=== PATIENT | female | born 1955 | race Caucasian/White ===

== ENCOUNTER 2017-12-21 09:24 | Inpatient (IN) ==
[~2017-12-21 09:24] MED LIST: Piperacillin/Tazobactam 3.375 GM in 0.9 % Sodium Chloride Mini Bag 100 ML IVPB SCH
--- NOTE | 2017-12-21 09:38 | Emergency Department Note ---
Disposition Clinical Impression: Severe sepsis, Ovarian cancer, Sinus tachycardia, Pulmonary embolism Disposition: Admitted As Inpatient Condition: Serious General Adult HPI - General Chief complaint: ED Shortness of Breath/Dyspnea Stated complaint: epigastric pain/elevated HR/dyspnea Time Seen by Provider: 12/21/17 09:32 Source: patient Limitations: no limitations - History of Present Illness Pain Scale: 8 - Related Data Home Medications Medication Instructions Recorded Confirmed Dexamethasone [Decadron] 20 mg PO AD 11/08/17 12/21/17 Metoprolol [Lopressor] 1 tab PO BID 11/26/17 12/21/17 Previous Rx's Medication Instructions Recorded Lidocaine/Prilocaine [Emla] 1 appl TP AD #30 gm 10/12/17 Docusate Sodium [Colace] 100 mg PO BID #60 capsule 10/22/17 Magic Mouthwash [Magic Mouthwash 10 ml PO QID PRN #240 ml 10/26/17 BLM] Omeprazole [PriLOSEC] 20 mg PO DAILY #30 cap 10/26/17 Ondansetron HCl [Zofran] 4 mg PO Q4H PRN #30 tablet 10/26/17 Prochlorperazine Maleate 10 mg PO Q6H PRN #30 tablet 10/26/17 [Compazine] Polyethylene Glycol 3350 [MiraLAX] 17 gm PO BID #1 tub 11/05/17 Ascorbate Calcium [Vitamin C] 1 tab PO DAILY #30 tablet 12/03/17 Ferrous Sulfate [Iron] 1 tab PO DAILY #30 tablet 12/03/17 Oxycodone HCl/Acetaminophen 10 mg PO Q6H PRN 15 Days #60 tablet 12/03/17 [Percocet 10-325 mg Tablet] Allergies Allergy/AdvReac Type Severity Reaction Status Date / Time No Known Allergies Allergy Verified 12/21/17 09:26 Past Medical History - Past Medical History Medical history: Reports: cancer, hypertension Psychiatric history: Reports: no psych history C[employer] history: Reports: other - Social History Smoking Status: Never smoker Smokeless Tobacco Status: No Alcohol use: Reports: none Drug use: Reports: none Physical Exam - General Limitations: no limitations General appearance: alert Course Vital Signs Temperature 97.5 F L 12/21/17 09:26 Pulse Rate 178 12/21/17 09:26 Respiratory Rate 30 04/06/18 09:26 Blood Pressure 101/83 12/21/17 09:26 O2 Sat by Pulse Oximetry 94 12/21/17 09:26 Temperature 97.7 F 12/22/17 04:09 Pulse Rate 117 12/22/17 04:09 Respiratory Rate 17 12/22/17 04:09 Blood Pressure 128/85 12/22/17 04:09 O2 Sat by Pulse Oximetry 95 12/22/17 04:09 Oxygen Delivery Oxygen Delivery Nasal Cannula Medical Decision Making - Lab Data Result diagrams: 12/22/17 02:13 12/22/17 02:13 Lab Results 12/21/17 12/21/17 12/21/17 Range/Units 09:45 09:46 09:46 WBC 1.9 L D (4.3-11.1) K/mcL RBC 3.25 L (3.82-4.97) M/mcL Hgb 9.2 L (11.5-15.4) g/dL Hct 28.5 L (35.3-44.9) % MCV 87.7 (83.0-100.0) fL MCH 28.3 (28.0-33.3) pg MCHC 32.3 (31.6-35.5) g/dL RDW 18.9 H (11.5-14.5) % Plt Count 499 H D (140-400) K/mcL MPV 9.9 (9.4-12.4) fL Seg Neutrophils % 54.0 % Band Neutrophils % 6.0 H (0-4) % Lymphocytes % 30.0 % Monocytes % 10.0 % Neutrophils # 1.1 L (1.6-8.9) K/mcL Lymphocytes # 0.6 (0.6-4.6) K/mcL Monocytes # 0.2 (0.0-1.3) K/mcL Nucleated RBCs/100 WBC 1.6 H (0) /100 WBC Platelet Estimate Slight increase H (Normal) Anisocytosis 1+ A (Not Present) PT 14.3 H (9.4-12.1) Seconds INR 1.3 APTT 26.4 (26.0-36.0) Seconds Sodium (136-145) mEq/L Potassium (3.5-5.1) mEq/L Chloride (98-107) mEq/L Carbon Dioxide (23-29) mEq/L BUN (8-23) mg/dL Creatinine (0.60-1.20) mg/dL Est GFR ( Amer) (> 60) Est GFR (Non-Af Amer) (> 60) BUN/Creatinine Ratio (6-26) Glucose (70-105) mg/dL Calculated Osmolality (280-300) Lactic Acid 4.9 H* (0.5-2.2) mmol/L Calcium (8.6-10.3) mg/dL Phosphorus (2.7-4.5) mg/dL Magnesium (1.6-2.6) mg/dL Total Bilirubin (0.3-1.0) mg/dL Direct Bilirubin (0.0-0.2) mg/dL Indirect Bilirubin (0.0-1.2) mg/dL AST (13-39) Units/L ALT (7-52) Units/L Alkaline Phosphatase (34-104) Units/L Troponin I (< 0.04) ng/mL B-Natriuretic Peptide (Less than 100) pg/mL Serum Total Protein (6.4-8.9) g/dL Albumin (3.5-5.7) g/dL Globulin (2.4-3.5) g/dL Albumin/Globulin Ratio (1.1-2.2) Urine Color (Yellow) Urine Clarity (Clear) Urine pH (5.0-8.0) pH Units Ur Specific [place] (1.010-1.025) Urine Protein (Neg-Trace) mg/dL Urine Glucose (UA) (Normal) mg/dL Urine Ketones (Negative) mg/dL Urine Blood (Negative) Urine Nitrite (Negative) Urine Bilirubin (Negative) Urine Urobilinogen (Normal) mg/dL Ur Leukocyte Esterase (Negative) Urine Microscopic RBC (0-3) per hpf Urine Microscopic WBC (0-3) per hpf Ur Squamous Epith Cells (None-Few) per lpf Urine Bacteria (None-Few) per hpf Hyaline Casts (None-Few) per lpf Granular Casts (None Seen) per lpf Urine Mucus (Few) Ur Culture Indicated? (NO) Fluid Source Fluid Volume mL Fluid Appearance (Clear) Fluid RBC (No Ref Range) M/mcL Fld Tot Nucleated Cell (No Ref Range) TNC/mcL Fluid Seg Neutrophil % % Fld Band Neutrophil % Fluid Lymphocytes % % Fluid Monocytes % % Fluid Eosinophils % Fluid Basophils % Fluid Other Cells % % Peritoneal Tot Protein (No Ref Range) g/dL 12/21/17 12/21/17 12/21/17 Range/Units 09:46 09:46 10:20 WBC (4.3-11.1) K/mcL RBC (3.82-4.97) M/mcL Hgb (11.5-15.4) g/dL Hct (35.3-44.9) % MCV (83.0-100.0) fL MCH (28.0-33.3) pg MCHC (31.6-35.5) g/dL RDW (11.5-14.5) % Plt Count (140-400) K/mcL MPV (9.4-12.4) fL Seg Neutrophils % % Band Neutrophils % (0-4) % Lymphocytes % % Monocytes % % Neutrophils # (1.6-8.9) K/mcL Lymphocytes # (0.6-4.6) K/mcL Monocytes # (0.0-1.3) K/mcL Nucleated RBCs/100 WBC (0) /100 WBC Platelet Estimate (Normal) Anisocytosis (Not Present) PT (9.4-12.1) Seconds INR APTT (26.0-36.0) Seconds Sodium 138 (136-145) mEq/L Potassium 4.2 (3.5-5.1) mEq/L Chloride 95 L (98-107) mEq/L Carbon Dioxide 23 (23-29) mEq/L BUN 30 H (8-23) mg/dL Creatinine 0.98 (0.60-1.20) mg/dL Est GFR ( Amer) > 60 (> 60) Est GFR (Non-Af Amer) 57 L (> 60) BUN/Creatinine Ratio 31 H (6-26) Glucose 213 H (70-105) mg/dL Calculated Osmolality 299 (280-300) Lactic Acid (0.5-2.2) mmol/L Calcium 9.7 (8.6-10.3) mg/dL Phosphorus 3.8 (2.7-4.5) mg/dL Magnesium 2.0 (1.6-2.6) mg/dL Total Bilirubin 1.5 H (0.3-1.0) mg/dL Direct Bilirubin 0.7 H (0.0-0.2) mg/dL Indirect Bilirubin 0.8 (0.0-1.2) mg/dL AST 13 (13-39) Units/L ALT 13 (7-52) Units/L Alkaline Phosphatase 89 (34-104) Units/L Troponin I < 0.03 (< 0.04) ng/mL B-Natriuretic Peptide 90 (Less than 100) pg/mL Serum Total Protein 7.2 (6.4-8.9) g/dL Albumin 3.1 L (3.5-5.7) g/dL Globulin 4.1 H (2.4-3.5) g/dL Albumin/Globulin Ratio 0.8 L (1.1-2.2) Urine Color [place] A (Yellow) Urine Clarity Hazy A (Clear) Urine pH 5.5 (5.0-8.0) pH Units Ur Specific [place] 1.027 H (1.010-1.025) Urine Protein 100 H (Neg-Trace) mg/dL Urine Glucose (UA) Normal (Normal) mg/dL Urine Ketones Trace H (Negative) mg/dL Urine Blood Negative (Negative) Urine Nitrite Negative (Negative) Urine Bilirubin Small H (Negative) Urine Urobilinogen Normal (Normal) mg/dL Ur Leukocyte Esterase Small H (Negative) Urine Microscopic RBC 0-3 (0-3) per hpf Urine Microscopic WBC 5-15 H (0-3) per hpf Ur Squamous Epith Cells Many H (None-Few) per lpf Urine Bacteria Moderate H (None-Few) per hpf Hyaline Casts Moderate H (None-Few) per lpf Granular Casts Many H (None Seen) per lpf Urine Mucus Many H (Few) Ur Culture Indicated? NO. (NO) Fluid Source Fluid Volume mL Fluid Appearance (Clear) Fluid RBC (No Ref Range) M/mcL Fld Tot Nucleated Cell (No Ref Range) TNC/mcL Fluid Seg Neutrophil % % Fld Band Neutrophil % Fluid Lymphocytes % % Fluid Monocytes % % Fluid Eosinophils % Fluid Basophils % Fluid Other Cells % % Peritoneal Tot Protein (No Ref Range) g/dL 12/21/17 12/21/17 12/21/17 Range/Units 11:11 11:11 13:45 WBC (4.3-11.1) K/mcL RBC (3.82-4.97) M/mcL Hgb (11.5-15.4) g/dL Hct (35.3-44.9) % MCV (83.0-100.0) fL MCH (28.0-33.3) pg MCHC (31.6-35.5) g/dL RDW (11.5-14.5) % Plt Count (140-400) K/mcL MPV (9.4-12.4) fL Seg Neutrophils % % Band Neutrophils % (0-4) % Lymphocytes % % Monocytes % % Neutrophils # (1.6-8.9) K/mcL Lymphocytes # (0.6-4.6) K/mcL Monocytes # (0.0-1.3) K/mcL Nucleated RBCs/100 WBC (0) /100 WBC Platelet Estimate (Normal) Anisocytosis (Not Present) PT (9.4-12.1) Seconds INR APTT (26.0-36.0) Seconds Sodium (136-145) mEq/L Potassium (3.5-5.1) mEq/L Chloride (98-107) mEq/L Carbon Dioxide (23-29) mEq/L BUN (8-23) mg/dL Creatinine (0.60-1.20) mg/dL Est GFR ( Amer) (> 60) Est GFR (Non-Af Amer) (> 60) BUN/Creatinine Ratio (6-26) Glucose (70-105) mg/dL Calculated Osmolality (280-300) Lactic Acid 1.5 (0.5-2.2) mmol/L Calcium (8.6-10.3) mg/dL Phosphorus (2.7-4.5) mg/dL Magnesium (1.6-2.6) mg/dL Total Bilirubin (0.3-1.0) mg/dL Direct Bilirubin (0.0-0.2) mg/dL Indirect Bilirubin (0.0-1.2) mg/dL AST (13-39) Units/L ALT (7-52) Units/L Alkaline Phosphatase (34-104) Units/L Troponin I (< 0.04) ng/mL B-Natriuretic Peptide (Less than 100) pg/mL Serum Total Protein (6.4-8.9) g/dL Albumin (3.5-5.7) g/dL Globulin (2.4-3.5) g/dL Albumin/Globulin Ratio (1.1-2.2) Urine Color (Yellow) Urine Clarity (Clear) Urine pH (5.0-8.0) pH Units Ur Specific [place] (1.010-1.025) Urine Protein (Neg-Trace) mg/dL Urine Glucose (UA) (Normal) mg/dL Urine Ketones (Negative) mg/dL Urine Blood (Negative) Urine Nitrite (Negative) Urine Bilirubin (Negative) Urine Urobilinogen (Normal) mg/dL Ur Leukocyte Esterase (Negative) Urine Microscopic RBC (0-3) per hpf Urine Microscopic WBC (0-3) per hpf Ur Squamous Epith Cells (None-Few) per lpf Urine Bacteria (None-Few) per hpf Hyaline Casts (None-Few) per lpf Granular Casts (None Seen) per lpf Urine Mucus (Few) Ur Culture Indicated? (NO) Fluid Source Peritoneal Fluid Volume 57 mL Fluid Appearance Slightly Hazy A (Clear) Fluid RBC 0.002 (No Ref Range) M/mcL Fld Tot Nucleated Cell 831 (No Ref Range) TNC/mcL Fluid Seg Neutrophil % 85.0 % Fld Band Neutrophil % Test Not Performed Fluid Lymphocytes % 5.0 % Fluid Monocytes % 4.0 % Fluid Eosinophils % Test Not Performed Fluid Basophils % Test Not Performed Fluid Other Cells % 6.0 % Peritoneal Tot Protein 4.5 (No Ref Range) g/dL Critical Care Time Critical Care Time: Yes Total Critical Care Time: 30 Attestation: The high probability of a clinically significant, sudden or life threatening deterioration of the [] system(s) required my full and direct attention, intervention and personal management. The aggregate critical care time was [] minutes. This time is in addition to time spent performing reported procedures but includes the following: [] Data Review and interpretation [] Patient assessment and monitoring of vital signs [] Documentation [] Medication orders and management Attestation Statement - Attestation Attestation: I examined this patient and my medical decision-making was reviewed with the Resident Physician. I agree with the documented findings, disposition and treatment plan as described except to the extent set forth below. [id number] time provided Patient arrives and is tachycardic and hypotensive. She has a history of ovarian cancer with metastases. She appears pale and generally ill on exam. I evaluated this patient immediately upon arrival to the medical treatment area in conjunction with the resident physician Dr. Irvin 09:45: ECG reveals a narrow complex tachycardia suggestive of supraventricular tachycardia versus sinus tachycardia. P waves are identified. It was mutually agreed to administer and aggressive fluid bolus and reassessed the patient's heart rate before providing any chemical cardioversion 11:12: Abdominal paracentesis performed by the resident physician under my supervision to evaluate peritoneal fluid for possible SBP. She continues to be tachycardic despite fluid resuscitation so I did suggest obtaining a CTA chest 12:50: Dr. Gonsalez in ED to evaluate patient. Recs IV albumin and antibiotics. Patient meets criteria for severe sepsis due to HR, RR, WBC count , lactate
[2017-12-21] MEDS ORDERED: 0.9 % Sodium Chloride 1,000 ML IVC ONE ×3 (09:41→14:44)
[2017-12-21] MEDS ORDERED: *HR* FentaNYL (PF) 100 MCG/2 ML VIAL IVP ONE ×2 (09:42→10:07)
[2017-12-21] MEDS ORDERED: 0.9 % Sodium Chloride 2,000 ML ONE (09:43)
--- NOTE | 2017-12-21 09:49 | Emergency Department Note ---
Disposition Clinical Impression: Severe sepsis, Sinus tachycardia Ovarian cancer Qualifiers: Laterality: unspecified laterality Qualified Code(s): C56.9 - Malignant neoplasm of unspecified ovary Pulmonary embolism Qualifiers: Pulmonary embolism type: other Chronicity: acute Acute cor pulmonale presence: without acute cor pulmonale Qualified Code(s): I26.99 - Other pulmonary embolism without acute cor pulmonale Disposition: Admitted As Inpatient Condition: Serious Referrals: Aide Stephenson [employer]ELOPER [Primary Care Provider] - Forms: ED Satisfaction Letter Time of Disposition: 13:12 General Adult HPI - General Chief complaint: ED Shortness of Breath/Dyspnea Stated complaint: epigastric pain/elevated HR/dyspnea Time Seen by Provider: 12/21/17 09:32 Source: patient Mode of arrival: private vehicle Limitations: no limitations Nursing Notes Reviewed: Yes Vital Signs Reviewed: Yes - History of Present Illness HPI Narrative: 62-year-old female with history of metastatic ovarian cancer with metastasis to the liver arrives to the emergency department being sent over from the cancer center for chemotherapy. The patient was noted to be tachycardic with a heart rate in the 130s to 150s at oncology. They called us and the patient over for evaluation. The patient is felt generalized weakness and generalized illness over the course the past 3 days. She has felt nauseated with some intermittent bilious vomiting. The patient admits to some palpitations and some pleuritic chest pain. She denies any other complaints at this time. She is noted to be tachycardic in the 170s. Initial EKG demonstrates sinus tachycardia versus SVT. There are some possible P waves noted. After initial discussion we elected to perform fluid bolus hydration to determine if that will slow the patient's heart rate. If no success we will cardiovert the patient. Pain Scale: 8 - Related Data Home Medications Medication Instructions Recorded Confirmed Dexamethasone [Decadron] 20 mg PO AD 11/08/17 12/17/17 Metoprolol [Lopressor] 1 tab PO BID 11/26/17 12/17/17 Previous Rx's Medication Instructions Recorded Lidocaine/Prilocaine [Emla] 1 appl TP AD #30 gm 10/12/17 Docusate Sodium [Colace] 100 mg PO BID #60 capsule 10/22/17 Magic Mouthwash [Magic Mouthwash 10 ml PO QID PRN #240 ml 10/26/17 BLM] Omeprazole [PriLOSEC] 20 mg PO DAILY #30 cap 10/26/17 Ondansetron HCl [Zofran] 4 mg PO Q4H PRN #30 tablet 10/26/17 Prochlorperazine Maleate 10 mg PO Q6H PRN #30 tablet 10/26/17 [Compazine] Polyethylene Glycol 3350 [MiraLAX] 17 gm PO BID #1 tub 11/05/17 Ascorbate Calcium [Vitamin C] 1 tab PO DAILY #30 tablet 12/03/17 Ferrous Sulfate [Iron] 1 tab PO DAILY #30 tablet 12/03/17 Oxycodone HCl/Acetaminophen 10 mg PO Q6H PRN 15 Days #60 tablet 12/03/17 [Percocet 10-325 mg Tablet] Blood-Glucose Meter, Drum-Type 1 each MC DAILY #1 kit 12/17/17 [Accu-Chek] Allergies Allergy/AdvReac Type Severity Reaction Status Date / Time No Known Allergies Allergy Verified 12/21/17 09:26 All systems ED: reviewed and negative except as stated. Constitutional: Reports: weakness. Denies: fever, chills ENT ED: Denies: congestion Cardiovascular: Reports: palpitations, dyspnea on exertion. Denies: chest pain , orthopnea, edema Respiratory: Reports: dyspnea. Denies: cough, wheezes, sputum production Gastrointestinal: Reports: abdominal pain, nausea, vomiting. Denies: diarrhea, constipation, hematemesis, melena, hematochezia Genitourinary: Denies: urgency, dysuria Musculoskeletal: Denies: back pain, neck pain Integumentary: Denies: rash Neurological: Denies: headache Past Medical History - Past Medical History Attestation: Yes The following information was validated with the patient. Source: patient, obtained from family Medical history: Reports: cancer, hypertension Psychiatric history: Reports: no psych history [employer]TER history: Reports: other - Social History Smoking Status: Never smoker Smokeless Tobacco Status: No Alcohol use: Reports: none Drug use: Reports: none Physical Exam - General Limitations: no limitations General appearance: alert, in distress - Head Head exam: atraumatic, normocephalic, normal inspection - Eye Eye exam: Present: normal appearance, PERRL, EOMI - ENT ENT exam: normal exam, normal oropharynx, mucous membranes moist - Neck Neck exam: Present: full ROM, trachea midline, other (Mild JVD) - Chest Chest inspection: Present: normal inspection, symmetric chest wall rise - Respiratory Respiratory exam: Present: other (Coarse without rales) - Cardiovascular Cardiovascular exam: Present: normal rhythm, tachycardia, normal heart sounds - Abdominal Exam Abdominal exam: Present: soft, tenderness (Right sded primarily), distention, scar. Absent: guarding, rebound, rigidity, pulsatile mass - Extremities Exam Extremities exam: Present: normal inspection, full ROM. Absent: tenderness, pedal edema - Neurological Exam Neurological exam: Present: alert, oriented X3 - Skin Skin exam: Present: warm, dry, intact, normal color Course - Consultations Consultation #1: Patient was fluid resuscitated with roughly 1500 mL of fluids initially upon arrival. The patient's heart rate and blood pressure have responded. The patient did have a small decrease in her O2 saturation down to 88%. She was placed on 2 L nasal cannula brought her O2 saturation up to 95%. She is resting comfortably at this time. Time: 10:06 Vital Signs Temperature 97.5 F L 12/21/17 09:26 Pulse Rate 178 12/21/17 09:26 Respiratory Rate 30 12/21/17 09:26 Blood Pressure 101/83 12/21/17 09:26 O2 Sat by Pulse Oximetry 94 12/21/17 09:26 Temperature 97.5 F L 12/21/17 09:26 Pulse Rate 152 12/21/17 12:23 Respiratory Rate 38 12/21/17 12:23 Blood Pressure 143/88 12/21/17 12:23 O2 Sat by Pulse Oximetry 100 12/21/17 12:23 Oxygen Delivery Oxygen Delivery Nasal Cannula Medical Decision Making - [facility] Narrative Medical decision making narrative: Patient's workup in the emergency department demonstrates severe sepsis with an unknown source at this time. We started her on IV antibiotics. In addition the patient was noted to have a right segmental pulmonary embolus that was tiny without heart strain. The patient was started on IV heparin drip at this time. She denies any active bleeding, black or bloody stools or any other complaints. The patient's peritoneal fluid was drained diagnostically to determine if there is any signs of SBP. This was negative. Urinalysis negative. Chest x-ray negative for any acute process. The patient was initially administered 2 L of IV fluid upon first arrival which did have improvement of the patient's blood pressure and tachycardia. The patient does remain tachycardic but she states that she is baseline tachycardic with a heart rate in the 130s to 150s when she ambulates. The patient was noted to have an elevated lactic acid of 4.9. This is severe sepsis. The case was discussed with pulmonology with regards to whether or not this patient was a candidate for the ICU. They do not feel as though this was a candidate for the ICU at this time. They gave recommendations of also adding albumin on her resuscitative efforts. We also administered albumin. The patient was accepted to the hospitalist, Dr. Cano for further care and workup. Patient made aware and agrees to plan of care. No further questions or concerns noted at this time. Oncology was also attempted to be paged but has not return phone call prior to time of admission. - Lab Data Lab results reviewed: Yes I reviewed the patient's lab results. Result diagrams: 12/21/17 09:46 12/21/17 09:46 Lab Results 12/21/17 12/21/17 12/21/17 Range/Units 09:45 09:46 09:46 WBC 1.9 L D (4.3-11.1) K/mcL RBC 3.25 L (3.82-4.97) M/mcL Hgb 9.2 L (11.5-15.4) g/dL Hct 28.5 L (35.3-44.9) % MCV 87.7 (83.0-100.0) fL MCH 28.3 (28.0-33.3) pg MCHC 32.3 (31.6-35.5) g/dL RDW 18.9 H (11.5-14.5) % Plt Count 499 H D (140-400) K/mcL MPV 9.9 (9.4-12.4) fL Seg Neutrophils % 54.0 % Band Neutrophils % 6.0 H (0-4) % Lymphocytes % 30.0 % Monocytes % 10.0 % Neutrophils # 1.1 L (1.6-8.9) K/mcL Lymphocytes # 0.6 (0.6-4.6) K/mcL Monocytes # 0.2 (0.0-1.3) K/mcL Nucleated RBCs/100 WBC 1.6 H (0) /100 WBC Platelet Estimate Slight increase H (Normal) Anisocytosis 1+ A (Not Present) PT 14.3 H (9.4-12.1) Seconds INR 1.3 APTT 26.4 (26.0-36.0) Seconds Sodium (136-145) mEq/L Potassium (3.5-5.1) mEq/L Chloride (98-107) mEq/L Carbon Dioxide (23-29) mEq/L BUN (8-23) mg/dL Creatinine (0.60-1.20) mg/dL Est GFR ( Amer) (> 60) Est GFR (Non-Af Amer) (> 60) BUN/Creatinine Ratio (6-26) Glucose (70-105) mg/dL Calculated Osmolality (280-300) Lactic Acid 4.9 H* (0.5-2.2) mmol/L Calcium (8.6-10.3) mg/dL Phosphorus (2.7-4.5) mg/dL Magnesium (1.6-2.6) mg/dL Total Bilirubin (0.3-1.0) mg/dL Direct Bilirubin (0.0-0.2) mg/dL Indirect Bilirubin (0.0-1.2) mg/dL AST (13-39) Units/L ALT (7-52) Units/L Alkaline Phosphatase (34-104) Units/L Troponin I (< 0.04) ng/mL Serum Total Protein (6.4-8.9) g/dL Albumin (3.5-5.7) g/dL Globulin (2.4-3.5) g/dL Albumin/Globulin Ratio (1.1-2.2) Urine Color (Yellow) Urine Clarity (Clear) Urine pH (5.0-8.0) pH Units Ur Specific Thrall (1.010-1.025) Urine Protein (Neg-Trace) mg/dL Urine Glucose (UA) (Normal) mg/dL Urine Ketones (Negative) mg/dL Urine Blood (Negative) Urine Nitrite (Negative) Urine Bilirubin (Negative) Urine Urobilinogen (Normal) mg/dL Ur Leukocyte Esterase (Negative) Urine Microscopic RBC (0-3) per hpf Urine Microscopic WBC (0-3) per hpf Ur Squamous Epith Cells (None-Few) per lpf Urine Bacteria (None-Few) per hpf Hyaline Casts (None-Few) per lpf Granular Casts (None Seen) per lpf Urine Mucus (Few) Ur Culture Indicated? (NO) Fluid Source Fluid Volume mL Fluid Appearance (Clear) Fluid RBC (No Ref Range) M/mcL Fld Tot Nucleated Cell (No Ref Range) TNC/mcL Fluid Seg Neutrophil % % Fld Band Neutrophil % Fluid Lymphocytes % % Fluid Monocytes % % Fluid Eosinophils % Fluid Basophils % Fluid Other Cells % % Peritoneal Tot Protein (No Ref Range) g/dL 12/21/17 12/21/17 12/21/17 Range/Units 09:46 10:20 11:11 WBC (4.3-11.1) K/mcL RBC (3.82-4.97) M/mcL Hgb (11.5-15.4) g/dL Hct (35.3-44.9) % MCV (83.0-100.0) fL MCH (28.0-33.3) pg MCHC (31.6-35.5) g/dL RDW (11.5-14.5) % Plt Count (140-400) K/mcL MPV (9.4-12.4) fL Seg Neutrophils % % Band Neutrophils % (0-4) % Lymphocytes % % Monocytes % % Neutrophils # (1.6-8.9) K/mcL Lymphocytes # (0.6-4.6) K/mcL Monocytes # (0.0-1.3) K/mcL Nucleated RBCs/100 WBC (0) /100 WBC Platelet Estimate (Normal) Anisocytosis (Not Present) PT (9.4-12.1) Seconds INR APTT (26.0-36.0) Seconds Sodium 138 (136-145) mEq/L Potassium 4.2 (3.5-5.1) mEq/L Chloride 95 L (98-107) mEq/L Carbon Dioxide 23 (23-29) mEq/L BUN 30 H (8-23) mg/dL Creatinine 0.98 (0.60-1.20) mg/dL Est GFR ( Amer) > 60 (> 60) Est GFR (Non-Af Amer) 57 L (> 60) BUN/Creatinine Ratio 31 H (6-26) Glucose 213 H (70-105) mg/dL Calculated Osmolality 299 (280-300) Lactic Acid (0.5-2.2) mmol/L Calcium 9.7 (8.6-10.3) mg/dL Phosphorus 3.8 (2.7-4.5) mg/dL Magnesium 2.0 (1.6-2.6) mg/dL Total Bilirubin 1.5 H (0.3-1.0) mg/dL Direct Bilirubin 0.7 H (0.0-0.2) mg/dL Indirect Bilirubin 0.8 (0.0-1.2) mg/dL AST 13 (13-39) Units/L ALT 13 (7-52) Units/L Alkaline Phosphatase 89 (34-104) Units/L Troponin I < 0.03 (< 0.04) ng/mL Serum Total Protein 7.2 (6.4-8.9) g/dL Albumin 3.1 L (3.5-5.7) g/dL Globulin 4.1 H (2.4-3.5) g/dL Albumin/Globulin Ratio 0.8 L (1.1-2.2) Urine Color [place] A (Yellow) Urine Clarity Hazy A (Clear) Urine pH 5.5 (5.0-8.0) pH Units Ur Specific Thrall 1.027 H (1.010-1.025) Urine Protein 100 H (Neg-Trace) mg/dL Urine Glucose (UA) Normal (Normal) mg/dL Urine Ketones Trace H (Negative) mg/dL Urine Blood Negative (Negative) Urine Nitrite Negative (Negative) Urine Bilirubin Small H (Negative) Urine Urobilinogen Normal (Normal) mg/dL Ur Leukocyte Esterase Small H (Negative) Urine Microscopic RBC 0-3 (0-3) per hpf Urine Microscopic WBC 5-15 H (0-3) per hpf Ur Squamous Epith Cells Many H (None-Few) per lpf Urine Bacteria Moderate H (None-Few) per hpf Hyaline Casts Moderate H (None-Few) per lpf Granular Casts Many H (None Seen) per lpf Urine Mucus Many H (Few) Ur Culture Indicated? NO. (NO) Fluid Source Peritoneal Fluid Volume 57 mL Fluid Appearance Slightly Hazy A (Clear) Fluid RBC 0.002 (No Ref Range) M/mcL Fld Tot Nucleated Cell 831 (No Ref Range) TNC/mcL Fluid Seg Neutrophil % 85.0 % Fld Band Neutrophil % Test Not Performed Fluid Lymphocytes % 5.0 % Fluid Monocytes % 4.0 % Fluid Eosinophils % Test Not Performed Fluid Basophils % Test Not Performed Fluid Other Cells % 6.0 % Peritoneal Tot Protein (No Ref Range) g/dL 12/21/17 Range/Units 11:11 WBC (4.3-11.1) K/mcL RBC (3.82-4.97) M/mcL Hgb (11.5-15.4) g/dL Hct (35.3-44.9) % MCV (83.0-100.0) fL MCH (28.0-33.3) pg MCHC (31.6-35.5) g/dL RDW (11.5-14.5) % Plt Count (140-400) K/mcL MPV (9.4-12.4) fL Seg Neutrophils % % Band Neutrophils % (0-4) % Lymphocytes % % Monocytes % % Neutrophils # (1.6-8.9) K/mcL Lymphocytes # (0.6-4.6) K/mcL Monocytes # (0.0-1.3) K/mcL Nucleated RBCs/100 WBC (0) /100 WBC Platelet Estimate (Normal) Anisocytosis (Not Present) PT (9.4-12.1) Seconds INR APTT (26.0-36.0) Seconds Sodium (136-145) mEq/L Potassium (3.5-5.1) mEq/L Chloride (98-107) mEq/L Carbon Dioxide (23-29) mEq/L BUN (8-23) mg/dL Creatinine (0.60-1.20) mg/dL Est GFR ( Amer) (> 60) Est GFR (Non-Af Amer) (> 60) BUN/Creatinine Ratio (6-26) Glucose (70-105) mg/dL Calculated Osmolality (280-300) Lactic Acid (0.5-2.2) mmol/L Calcium (8.6-10.3) mg/dL Phosphorus (2.7-4.5) mg/dL Magnesium (1.6-2.6) mg/dL Total Bilirubin (0.3-1.0) mg/dL Direct Bilirubin (0.0-0.2) mg/dL Indirect Bilirubin (0.0-1.2) mg/dL AST (13-39) Units/L ALT (7-52) Units/L Alkaline Phosphatase (34-104) Units/L Troponin I (< 0.04) ng/mL Serum Total Protein (6.4-8.9) g/dL Albumin (3.5-5.7) g/dL Globulin (2.4-3.5) g/dL Albumin/Globulin Ratio (1.1-2.2) Urine Color (Yellow) Urine Clarity (Clear) Urine pH (5.0-8.0) pH Units Ur Specific Thrall (1.010-1.025) Urine Protein (Neg-Trace) mg/dL Urine Glucose (UA) (Normal) mg/dL Urine Ketones (Negative) mg/dL Urine Blood (Negative) Urine Nitrite (Negative) Urine Bilirubin (Negative) Urine Urobilinogen (Normal) mg/dL Ur Leukocyte Esterase (Negative) Urine Microscopic RBC (0-3) per hpf Urine Microscopic WBC (0-3) per hpf Ur Squamous Epith Cells (None-Few) per lpf Urine Bacteria (None-Few) per hpf Hyaline Casts (None-Few) per lpf Granular Casts (None Seen) per lpf Urine Mucus (Few) Ur Culture Indicated? (NO) Fluid Source Fluid Volume mL Fluid Appearance (Clear) Fluid RBC (No Ref Range) M/mcL Fld Tot Nucleated Cell (No Ref Range) TNC/mcL Fluid Seg Neutrophil % % Fld Band Neutrophil % Fluid Lymphocytes % % Fluid Monocytes % % Fluid Eosinophils % Fluid Basophils % Fluid Other Cells % % Peritoneal Tot Protein 4.5 (No Ref Range) g/dL - Radiology Data Radiology results reviewed: Yes I reviewed the patient's radiology results. Chest X-Ray 12/21/17 09:46 IMPRESSION: Low lung volumes with bibasilar atelectasis D/ / Yoel Em MD / Yoel Em MD Interpreting Provider: Yoel Em MD Chest CTA 12/21/17 11:12 IMPRESSION: Positive study for pulmonary embolism with tiny embolus within distal aspect of a segmental pulmonary artery to the right lower lobe. Low clot burden. No evidence for right heart strain. Interval resolution of trace right pleural effusion. Trace left pleural effusion appears similar to minimally improved from prior exam 11/08/2017. Linear areas of likely scarring versus atelectasis to the lungs bilaterally, predominantly to the lung bases. Grossly stable appearance to some low-attenuation foci to the partially imaged liver likely reflecting a combination of benign liver cysts as well as liver lesions. There is also persistent ascites, not appreciably changed from prior exam. Critical results were called by Dr. Antione Pritchett MD to Cecilio Irvin on 12/21/2017 at 12:19. D/ / 12/21/2017 12:23:43 Antione Pritchett MD / [facility] Interpreting Provider: Antione Pritchett MD - EKG Data EKG #1 EKG attestation: Yes I reviewed and interpreted this EKG. EKG results narrative: Heart rate 165 beats for minute. Sinus tachycardia versus SVT. There are some noted P waves but difficult to assess as this may be a rebound wave. EKG otherwise similar to what morphology to EKG from 11/26/2017. EKG at 1005: Heart rate 1 [address]pm[address]. No [address] elevation or ST depression noted.
[2017-12-21 10:09] LABS: Nucleated Red Blood Cells 1.6 /100 WBC (0); Red Cell Distribution Width 18.9 % (11.5-14.5)
[2017-12-21 10:10] LABS: Hematocrit 28.5 % (35.3-44.9); Hemoglobin 9.2 g/dL (11.5-15.4); Lymphocytes # 0.6 K/mcL (0.6-4.6); Mean Corpuscular HGB Conc 32.3 g/dL (31.6-35.5); Mean Corpuscular Hemoglobin 28.3 pg (28.0-33.3); Mean Corpuscular Volume 87.7 fL (83.0-100.0); Mean Platelet Volume 9.9 fL (9.4-12.4); Platelet Count 499 K/mcL (140-400); Red Blood Count 3.25 M/mcL (3.82-4.97)
[2017-12-21 10:14] LABS: INR 1.3; Prothrombin Time 14.3 Seconds (9.4-12.1)
[2017-12-21 10:17] LABS: Activated Partial Thrombo Time 26.4 Seconds (26.0-36.0)
[2017-12-21 10:26] LABS: Monocytes # 0.2 K/mcL (0.0-1.3); Neutrophils # 1.1 K/mcL (1.6-8.9)
[2017-12-21 10:27] LABS: Bilirubin,Urine Small (Negative); Blood,Urine Negative (Negative); Color,Urine Orange (Yellow); Glucose,Urine (UA) Normal (Normal); Ketones,Urine Trace mg/dL (Negative); Leukocyte Esterase,Urine Small (Negative); Nitrite,Urine Negative (Negative); PH,Urine 5.5 pH Units (5.0-8.0); Protein,Urine 100 mg/dL (Neg-Trace); Specific Gravity,Urine 1.027 (1.010-1.025); Urobilinogen,Urine Normal (Normal)
[2017-12-21 10:27] LABS: Anisocytosis 1+ (Not Present)
[2017-12-21 10:28] LABS: Alanine Aminotransferase 13 Units/L (7-52); Albumin 3.1 g/dL (3.5-5.7); Albumin/Globulin Ratio 0.8 (1.1-2.2); Alkaline Phosphatase 89 Units/L (34-104); Aspartate Amino Transferase 13 Units/L (13-39); BUN/Creatinine Ratio 31 (6-26); Bilirubin,Direct 0.7 mg/dL (0.0-0.2); Bilirubin,Indirect 0.8 mg/dL (0.0-1.2); Bilirubin,Total 1.5 mg/dL (0.3-1.0); Blood Urea Nitrogen 30 mg/dL (8-23); Calcium 9.7 mg/dL (8.6-10.3); Carbon Dioxide 23 mEq/L (23-29); Chloride 95 mEq/L (98-107); Globulin 4.1 g/dL (2.4-3.5); Glucose 213 mg/dL (70-105); Osmolality,Calculated 299 (280-300); Phosphorous 3.8 mg/dL (2.7-4.5); Potassium 4.2 mEq/L (3.5-5.1); Sodium 138 mEq/L (136-145); Total Protein 7.2 g/dL (6.4-8.9); Troponin I < 0.03 ng/mL (< 0.04); eGFR For African Americans > 60 (> 60); eGFR For Non-African Americans 57 (> 60)
[2017-12-21 10:29] LABS: RBC,Urine 0-3 per hpf (0-3); Squamous Epithelial Cell,Urine Many per lpf (None-Few)
[2017-12-21] MEDS ORDERED: Ondansetron 4 MG/2 ML VIAL IVP ONE (10:38)
[2017-12-21] MEDS ORDERED: Ondansetron 4 MG/2 ML VIAL ONE (10:39)
[2017-12-21 10:43] LABS: Mucus,Urine Many (Few)
[2017-12-21 10:44] LABS: Granular Casts,Urine Many per lpf (None Seen); Hyaline Casts,Urine Moderate per lpf (None-Few)
[2017-12-21 10:46] LABS: Bacteria,Urine Moderate per hpf (None-Few)
[2017-12-21 10:48] LABS: Clarity,Urine Hazy (Clear)
[2017-12-21 11:20] LABS: Source of Body Fluid Peritoneal
[2017-12-21 11:33] LABS: Volume of Body Fluid 57 mL
[2017-12-21 11:35] LABS: Appearance of Body Fluid Slightly Hazy (Clear)
[2017-12-21] MEDS ORDERED: Hydrocortisone Sodium Succ 100 MG/2 ML VIAL IVP ONE (12:56)
[2017-12-21] MEDS ORDERED: *HR* Heparin 5,000 UNIT/ML VIAL IVP ONE (13:04)
[2017-12-21] MEDS ORDERED: *HR* Heparin 5,000 UNIT/ML VIAL IVP PRN (13:04)
[2017-12-21] MEDS: Piperacillin/Tazobactam 3.375 GM in 0.9 % Sodium Chloride Mini Bag 100 ML IVPB ONE ×2 (13:09→16:04)
[2017-12-21] MEDS: Heparin 25,000 UNIT/500 ML D5W 25,000 UNIT/500 ML BAG IVC SCH (14:04)
[2017-12-21] MEDS ORDERED: *HR* OxyCODONE/APAP 10/325 TABLET PO PRN (14:48)
[2017-12-21] MEDS ORDERED: Magic Mouthwash 10 ML UD Cup PO PRN (14:48)
[2017-12-21] MEDS ORDERED: *HR* Metoprolol 5 MG/5 ML VIAL IVP ONE (14:56)
[2017-12-21] MEDS ORDERED: Naloxone 0.4 MG/ML INJ IVP PRN (14:57)
--- NOTE | 2017-12-21 15:11 | Internal Med History&Physical ---
<Lionel Saha J - Last Filed: 12/21/17 15:02> Date of Encounter: 12/21/17 Time of Encounter: 15:03 Internal Medicine - H&P: HPI Chief complaint: tachycardia, Severe sepsis, Pulmonary embolism, Hx of ovarian Ca with liver Admitted From: Home Plans for Post Hospital Care: Home History of present illness: Ms. Gamble is a 62 year old female with a PMH of HTN and ovarian cancer with metastasis to the liver. She presents to [facility] ED today from [facility] with tachycardia. She was at [facility] for chemotherapy and was noted to be tachycardic with HR in the 130's-150's. She reports that she has had tachycardia with HR around 130's at home for approximately the last month. Over the last three days she has been noticing increasing generalized weakness, and dyspnea. She also reports feeling many palpitations throughout the last three days. She denies any fevers, chills, ill contacts, chest pain, abdominal pain, diarrhea, dysuria or unilateral extermity swelling or pain. She admits to intermittent N/V and dyspnea. She was found to have a temperature of 97.5, and HR of 170's as well as hypotension with a lactate of 4.9 in the ED. She was treated for severe sepsis with shock and received 2L fluid bolus and HR and BP slightly improved. No clear source of infection. She remained dyspneic however, and A CTA was obtained and she was found to have a PE with a tiny embolus within the distal aspect of a segmental pulmonary artery to the right lobe. No evidence of heart strain noted. She is being admitted as inpatient for PE and severe sepsis with shock. Past Med Surg Social Fam HX - Past Medical History Medical history: cancer, hypertension Psychiatric history: no psych history - Social History Smoking Status: Never smoker Smokeless Tobacco Status: No Alcohol use: none Drug use: none - Family History Sister Living Status: Still Living Hx Family Cancer: Yes (ovarian) Internal Medicine - H&P: Meds Lidocaine/Prilocaine [Emla] 1 appl TP AD #30 gm 10/12/17 [Rx] Docusate Sodium [Colace] 100 mg PO BID #60 capsule 10/22/17 [Rx] Magic Mouthwash [Magic Mouthwash BLM] 10 ml PO QID PRN #240 ml 10/26/17 [Rx] Omeprazole [PriLOSEC] 20 mg PO DAILY #30 cap 10/26/17 [Rx] Ondansetron HCl [Zofran] 4 mg PO Q4H PRN #30 tablet 10/26/17 [Rx] Prochlorperazine Maleate [Compazine] 10 mg PO Q6H PRN #30 tablet 10/26/17 [Rx] Polyethylene Glycol 3350 [MiraLAX] 17 gm PO BID #1 tub 11/05/17 [Rx] Dexamethasone [Decadron] 20 mg PO AD 11/08/17 [History] Metoprolol [Lopressor] 1 tab PO BID 11/26/17 [History] Ascorbate Calcium [Vitamin C] 1 tab PO DAILY #30 tablet 12/03/17 [Rx] Ferrous Sulfate [Iron] 1 tab PO DAILY #30 tablet 12/03/17 [Rx] Oxycodone HCl/Acetaminophen [Percocet 10-325 mg Tablet] 10 mg PO Q6H PRN 15 Days #60 tablet 12/03/17 [Rx] 3 Allergy/AdvReac Type Severity Reaction Status Date / Time No Known Allergies Allergy Verified 12/21/17 09:26 All Systems PM: A 10-system review of systems was performed and is negative for pertinent findings except as documented above in the HPI. - Constitutional Constitutional: as per HPI - EENT Eyes: no change in vision, no discharge, no pain, no photophobia Ears: no ear discharge, no ear pain, no tinnitus Nose, mouth and throat: no dysphagia, no nasal discharge, no neck pain, no sore throat - Cardiovascular Cardiovascular ROS IM: as per HPI - Respiratory Respiratory: as per HPI - Gastrointestinal Gastrointestinal: as per HPI - Genitourinary Genitourinary: as per HPI - Musculoskeletal Musculoskeletal ROS IM: no numbness, no tingling - Integumentary Integumentary IM: no rash, no unusual bruising - Neurological Neurological ROS: no confusion, no convulsions, no focal weakness, no numbness, no tingling, no tremor(s) - Constitutional Vitals: Temp Pulse Resp BP Pulse Ox 96.8 F L 146 30 116/93 100 12/21/17 13:47 12/21/17 14:41 12/21/17 14:41 12/21/17 14:41 12/21/17 14:41 General appearance: Present: cooperative, mild distress, A&O X 3, answers questions appropriately - Head Head exam: Present: atraumatic, normocephalic - Eye Eye exam: Present: PERRL, conjuntiva pink, sclera anicteric Pupils: Present: PERRL - Neck Neck exam general surgery: Present: supple, trachea midline. Absent: lymphadenopathy - Respiratory Respiratory exam: Present: decreased breath sounds, CTAB, tachypnea Additional comments: shallow respirations without accessory breathing - Cardiovascular Cardiovascular exam: Present: RRR, +S1, +S2, tachycardia. Absent: diastolic murmur, gallop, irregular rhythm, JVD, rubs, systolic murmur - GI/Abdominal GI/Abdominal exam: Present: normal bowel sounds, soft, no peritoneal signs. Absent: distended, tenderness - Extremities Exam Extremities exam: Present: warm, radial pulses palpable and symmetrical. Absent : calf tenderness, cyanotic, pedal edema - Neurological Exam Neurological exam: Present: alert, oriented X3. Absent: facial droop, speech deficit - Skin Skin exam: Present: dry, intact Internal Med - H&P Results - Labs CBC & Chem 7: 12/21/17 09:46 12/21/17 09:46 - EKG Data -: EKG Interpreted by Myself EKG shows normal: sinus rhythm Rate: tachycardia - EKG Data Prior EKG available for review: no EKG comments: EKG X 2 WITH SINUS TACHYCARDIA vs SVT WITH HR OF 142 AND 165. P-waves are visualized, no ischemic changes noted 12/21/17 15:14 - Impressions Impressions Chest X-Ray 12/21/17 09:46 IMPRESSION: Low lung volumes with bibasilar atelectasis D/ / Yoel Em MD / Yoel Em MD Interpreting Provider: Yoel Em MD Chest CTA 12/21/17 11:12 IMPRESSION: Positive study for pulmonary embolism with tiny embolus within distal aspect of a segmental pulmonary artery to the right lower lobe. Low clot burden. No evidence for right heart strain. Interval resolution of trace right pleural effusion. Trace left pleural effusion appears similar to minimally improved from prior exam 11/08/2017. Linear areas of likely scarring versus atelectasis to the lungs bilaterally, predominantly to the lung bases. Grossly stable appearance to some low-attenuation foci to the partially imaged liver likely reflecting a combination of benign liver cysts as well as liver lesions. There is also persistent ascites, not appreciably changed from prior exam. Critical results were called by Dr. Antione Pritchett MD to Cecilio Irvin on 12/21/2017 at 12:19. D/ / 12/21/2017 12:23:43 Antione Pritchett MD / annika Interpreting Provider: Antione Pritchett MD - Assessment and plan (1) Pulmonary embolism Current Visit: Yes Status: Acute Assessment and plan: Presents today with tachycardia, tachypnea, and dyspnea. H/o cancer. CTA chest results as follows Positive study for pulmonary embolism with tiny embolus within distal aspect of a segmental pulmonary artery to the right lower lobe. Low clot burden. No evidence for right heart strain. -Continue heparin gtt and adjust and order labs per protocol -Respiratory per nasal canula PRN; Maintain spo2 greater than 90% Qualifiers: Pulmonary embolism type: other Chronicity: acute Acute cor pulmonale presence: without acute cor pulmonale Qualified Code(s): I26.99 - Other pulmonary embolism without acute cor pulmonale (2) Severe sepsis Current Visit: Yes Status: Acute Assessment and plan: ASSESSMENT: Presents today with Severe Sepsis without shock. Etiology unclear. CXR negative or acute pulmonary process, no open wounds, does not appear to have an acute abdomen per my exam. Ua negative for UTI, Blood cultures pending. She is immunocompromised with ovarian cancer with metastasis to the liver. WBC 1.9, Lactic acid 4.9 tachycardia, tachypnea, mild hypotension. Received 2L fluid bolus in ED and HR slightly improved. BP has improved. Follow-up lactate 1.5. Hemodynamically stable. -Aerosols q4h -UA small leukocyte esterase, not convincing for UTI -CBCD, BMP in AM -trend cardiac enzymes q6has she is also sinus tach with rate in 140's and has a PE -Tylenol 650 mg PO q 6 hr PRN pain or fever -Heparin gtt as she has a PE as well -ABX Vancomycin with PT to dose and Zosyn Q8h -Blood cultures- follow results -Bolus 0.9% NS x1 additional liter -Continuous tele, Continuous Spo2 monitoring (3) HTN (hypertension) Current Visit: Yes Status: Acute Assessment and plan: Stable, continue home anti-HTN medication Qualifiers: Hypertension type: essential hypertension Qualified Code(s): I10 - Essential (primary) hypertension (4) Ovarian cancer Current Visit: Yes Status: Chronic Assessment and plan: H/o ovarian cancer with metastases to the liver. Follow with [facility]. Receiving weekly chemotherapy. Was at [facility] today and found to be tachycardic and send to ED. -Consult Oncology to follow throughout stay. Qualifiers: Laterality: unspecified laterality Qualified Code(s): C56.9 - Malignant neoplasm of unspecified ovary (5) Hyperglycemia Current Visit: Yes Status: Acute Assessment and plan: Likely secondary to oral steroid use with chemotherapy tx continue to monitor no insulin coverage for now; no h/o DM (6) DVT prophylaxis Current Visit: Yes Status: Acute Assessment and plan: Continue heparin gtt (7) Neutropenia Current Visit: Yes Status: Acute Assessment and plan: WBC 1.9 and neutrophils 1.1. H/o ovarian cancer with liver metastasis -consult to Oncology- Spoke with Oncology who will see in consultation -Additional recommendations for Oncology Qualifiers: Neutropenia type: unspecified Qualified Code(s): D70.9 - Neutropenia, unspecified - Time Spent With Patient Total time spent is greater than 50% in coordination of care (as documented) at patient's floor/unit and/or counseling patient: Greater than 35 minutes <Max Cano T - Last Filed: 12/22/17 08:10> Date of Encounter: 12/22/17 Internal Medicine - H&P: HPI History of present illness: Ms. Gamble is a 62 year old female All Systems PM: A 10-system review of systems was performed and is negative for pertinent findings except as documented above in the HPI. - Constitutional Vitals: Temp Pulse Resp BP Pulse Ox 97.8 F 124 16 137/95 95 12/22/17 07:33 12/22/17 07:33 12/22/17 07:33 12/22/17 07:33 12/22/17 07:33 Internal Med - H&P Results - Labs CBC & Chem 7: 12/22/17 02:13 12/22/17 02:13 Labs: Short CBC 12/22/17 Range/Units 02:13 WBC 1.6 L (4.3-11.1) K/mcL Hgb 7.1 L D (11.5-15.4) g/dL Hct 22.2 L (35.3-44.9) % Plt Count 317 (140-400) K/mcL Neutrophils # 0.7 L (1.6-8.9) K/mcL BMP 12/22/17 02:13 Sodium 137 Potassium 3.8 Chloride 106 Carbon Dioxide 24 BUN 27 H Creatinine 0.70 Glucose 144 H Calcium 8.5 L Cardiac Enzymes 12/21/17 12/21/17 Range/Units 17:01 19:56 Troponin I < 0.03 < 0.03 (< 0.04) ng/mL - Attending Attestation The patient was independently examined and her available records, labs and tests were reviewed. I agree with the BO[employer] OUT[employer]ING SUPERVISOR's A&P. Her ST was initially treated with Lopressor; however, she remains tachycardic with a rate in the 120-130s so a Cardizem was started. She has a small PE in the distal aspect of a segmental branch within the RLL. There is no CT evidence to suggest right heart strain. She was started on a Heparin drip and could be be transitioned to Xarelto or Eliquis in the morning. She denies any bleeding or prior GIB. Initially she met sepsis criteria and had a LA of 4.9 which following fluid resuscitation decreased to 1.5. Her CXR did not show an infiltrate. Her UA looks contaminated and should be repeated. She's neurtopenic but her neutrophils are > 1000 and she is afebrile. Vanc and Zosyn were started empirically and a low threshold to deescalate coverage should be considered if no source of infection is discovered. Her Hbg has been in the mid 9 range and should be closely followed after anticoagulation is started. Oncology was mad aware of her admission. A paracentesis was done in the ER and initial results do not suggest peritonitis. Her abdomen was soft without peritoneal signs. - Assessment and plan (1) Ovarian cancer Current Visit: Yes Status: Chronic Qualifiers: Laterality: unspecified laterality Qualified Code(s): C56.9 - Malignant neoplasm of unspecified ovary (2) DVT prophylaxis Current Visit: Yes Status: Acute (3) Severe sepsis Current Visit: Yes Status: Acute (4) Pulmonary embolism Current Visit: Yes Status: Acute Qualifiers: Pulmonary embolism type: other Chronicity: acute Acute cor pulmonale presence: without acute cor pulmonale Qualified Code(s): I26.99 - Other pulmonary embolism without acute cor pulmonale (5) HTN (hypertension) Current Visit: Yes Status: Acute Qualifiers: Hypertension type: essential hypertension Qualified Code(s): I10 - Essential (primary) hypertension (6) Hyperglycemia Current Visit: Yes Status: Acute (7) Neutropenia Current Visit: Yes Status: Acute Qualifiers: Neutropenia type: unspecified Qualified Code(s): D70.9 - Neutropenia, unspecified - Time Spent With Patient Total time spent is greater than 50% in coordination of care (as documented) at patient's floor/unit and/or counseling patient:
[2017-12-21] MEDS ORDERED: Levalbuterol Neb 0.63 MG/3 ML IH PRN (15:40)
[2017-12-21] MEDS ORDERED: Acetaminophen 325 MG TABLET PO PRN (15:41)
[2017-12-21] MEDS: *HR* FentaNYL (PF) 100 MCG/2 ML VIAL IVP PRN (17:04)
[2017-12-21] MEDS: *HR* OxyCODONE/APAP 10/325 TABLET PO PRN (21:09)
[2017-12-22] MEDS: *HR* FentaNYL (PF) 100 MCG/2 ML VIAL IVP PRN ×2 (00:39→18:44)
[2017-12-22] MEDS: Piperacillin/Tazobactam 3.375 GM in 0.9 % Sodium Chloride Mini Bag 100 ML IVPB SCH ×3 (00:44→15:16)
[2017-12-22 02:24] LABS: Mean Platelet Volume 9.6 fL (9.4-12.4)
[2017-12-22 02:26] LABS: Basophils % 1.2 %; Hematocrit 22.2 % (35.3-44.9); Hemoglobin 7.1 g/dL (11.5-15.4); Immature Granulocytes % 1.2 % (0-4); Lymphocytes # 0.6 K/mcL (0.6-4.6); Mean Corpuscular Hemoglobin 28.1 pg (28.0-33.3); Mean Corpuscular Volume 87.7 fL (83.0-100.0); Monocytes # 0.3 K/mcL (0.0-1.3); Monocytes % 20.1 %; Neutrophils # 0.7 K/mcL (1.6-8.9); Platelet Count 317 K/mcL (140-400); Red Blood Count 2.53 M/mcL (3.82-4.97); Red Cell Distribution Width 19.3 % (11.5-14.5); Segmented Neutrophils % 41.5 %
[2017-12-22 02:52] LABS: BUN/Creatinine Ratio 39 (6-26); Blood Urea Nitrogen 27 mg/dL (8-23); Calcium 8.5 mg/dL (8.6-10.3); Carbon Dioxide 24 mEq/L (23-29); Chloride 106 mEq/L (98-107); Glucose 144 mg/dL (70-105); Osmolality,Calculated 292 (280-300); Potassium 3.8 mEq/L (3.5-5.1); Sodium 137 mEq/L (136-145); eGFR For African Americans > 60 (> 60); eGFR For Non-African Americans > 60 (> 60)
[2017-12-22] MEDS: *HR* OxyCODONE/APAP 10/325 TABLET PO PRN ×4 (03:08→20:22)
[2017-12-22] MEDS: *HR* Heparin 5,000 UNIT/ML VIAL IVP PRN ×2 (03:09→12:39)
[2017-12-22 03:15] LABS: Platelet Estimate Normal (Normal); Reactive Lymphocytes Present (Not Present)
[2017-12-22 03:16] LABS: Anisocytosis 1+ (Not Present)
[2017-12-22] MEDS: Ascorbic Acid 500 MG TABLET PO SCH (09:06)
[2017-12-22 10:41] LABS: Bilirubin,Urine Small (Negative); Blood,Urine Negative (Negative); Clarity,Urine Cloudy (Clear); Color,Urine Dark Yellow (Yellow); Glucose,Urine (UA) Normal (Normal); Ketones,Urine Negative (Negative); Leukocyte Esterase,Urine Negative (Negative); Nitrite,Urine Negative (Negative); PH,Urine 5.5 pH Units (5.0-8.0); Protein,Urine 100 mg/dL (Neg-Trace); Specific Gravity,Urine > 1.030 (1.010-1.025); Urobilinogen,Urine Normal (Normal)
--- NOTE | 2017-12-22 10:41 | Internal Med Progress Note ---
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 Stage IV currently undergoing treatment with [facility] (Dr. Graves) Oncology evaluation requested. Qualifiers: Laterality: unspecified laterality Qualified Code(s): C56.9 - Malignant neoplasm of unspecified ovary (2) DVT prophylaxis Current Visit: Yes Status: Acute Assessment and plan: Continue heparin gtt (3) Severe sepsis Current Visit: Yes Status: Acute Assessment and plan: Likely secondary to UTI CT findings consistent with PE however not signs of infectious etiology present will repeat UA, urine culture f/u blood culture continue broad spectrum IV abx given immunocompromised status will de-escalate abx therapy as clinically improves and as per culture reports continue O2 supplementation as needed will continue to closely monitor (4) Pulmonary embolism Current Visit: Yes Status: Acute Assessment and plan: CTA chest findings consisted with RLL distal segmental PE continue heparin gtt oncology evaluation requested will defer to oncology for adjunct faculty for medical terminology anticoagulation O2 supplementation as needed Qualifiers: Pulmonary embolism type: other Chronicity: acute Acute cor pulmonale presence: without acute cor pulmonale Qualified Code(s): I26.99 - Other pulmonary embolism without acute cor pulmonale (5) HTN (hypertension) Current Visit: Yes Status: Acute Assessment and plan: BP within acceptable range continue home meds Qualifiers: Hypertension type: essential hypertension Qualified Code(s): I10 - Essential (primary) hypertension (6) Hyperglycemia Current Visit: Yes Status: Acute Assessment and plan: Likely secondary to oral steroid use with chemotherapy tx continue to monitor no insulin coverage for now; no h/o DM (7) Neutropenia Current Visit: Yes Status: Acute Assessment and plan: WBC 1.6 and neutrophils 0.7. H/o ovarian cancer with liver metastasis f/u oncology evaluation Qualifiers: Neutropenia type: unspecified Qualified Code(s): D70.9 - Neutropenia, unspecified (8) Constipation Current Visit: Yes Status: Chronic Assessment and plan: History of chronic constipation KUB done to r/o any acute etiology, negative for any intra-abd process d/c colace, started Senna plus 2Tabs PO BID continue miralax Qualifiers: Constipation type: drug induced constipation Qualified Code(s): K59.03 - Drug induced constipation (9) Sinus tachycardia Current Visit: Yes Status: Acute Assessment and plan: Hx of sinus tachycardia, worsened likely secondary to acute PE continue home dose of BB continue heparin gtt for PE will continue tele monitoring pt denies any chest pain at this time - Time Spent With Patient Total time spent is greater than 50% in coordination of care (as documented) at patient's floor/unit and/or counseling patient: - Subjective Interval history: Patient seen and examined with family present at bedside. Pt reports of having history of sinus tachycardia and her HR is always in 110-120s however prior to her arrival to the hospital it was in 140s and she was nauseous, feeling ill. Pt reports of having her last chemotherapy treatment one week ago with Dr. Graves. Given pt's immunocompromised status, concern for sepsis likely secondary to UTI Will continue IV abx at this time Denies any chest pain, shortness of breath at this time. however is saturating well on nasal cannula and she is not on any home oxygen of note: pt reports of having a diagnostic paracentesis in the ER, done by the ER physician - Constitutional Vitals: Temp Pulse Resp BP Pulse Ox 97.8 F 123 16 137/95 94 12/22/17 07:33 12/22/17 10:28 12/22/17 10:28 12/22/17 07:33 12/22/17 10:28 General appearance: Present: cooperative, A&O X 3 (frail/weak), no acute distress, answers questions appropriately - Head Head exam: Present: atraumatic, normocephalic - Eye Eye exam: Present: conjuntiva pink, sclera anicteric - Respiratory Respiratory exam: Absent: respiratory distress, wheezes (equal air entry bilaterally ) - Cardiovascular Cardiovascular exam: Present: +S1, +S2, tachycardia (sinus tachycardia) - GI/Abdominal GI/Abdominal exam: Present: distended (ascites), hypoactive bowel sounds, soft, no peritoneal signs - Extremities Exam Extremities exam: Present: warm, radial pulses palpable and symmetrical. Absent : calf tenderness, tenderness - Neurological Exam Neurological exam: Present: oriented X3 Internal Medicine: Result - Labs CBC & Chem 7: 12/22/17 02:13 12/22/17 02:13 Labs: Short CBC 12/22/17 Range/Units 02:13 WBC 1.6 L (4.3-11.1) K/mcL Hgb 7.1 L D (11.5-15.4) g/dL Hct 22.2 L (35.3-44.9) % Plt Count 317 (140-400) K/mcL Neutrophils # 0.7 L (1.6-8.9) K/mcL BMP 12/22/17 02:13 Sodium 137 Potassium 3.8 Chloride 106 Carbon Dioxide 24 BUN 27 H Creatinine 0.70 Glucose 144 H Calcium 8.5 L Cardiac Enzymes 12/21/17 12/21/17 Range/Units 17:01 19:56 Troponin I < 0.03 < 0.03 (< 0.04) ng/mL - ABG Interpretation ABG results: PT/INR, D-dimer PT 14.3 Seconds (9.4-12.1) H 12/21/17 09:46 Consult Discharge Plan - Plan Referrals: Aide Stephenson, DAM WORKER [Primary Care Provider] -
[2017-12-22 10:43] LABS: Hematocrit 22.7 % (35.3-44.9); Hemoglobin 7.5 g/dL (11.5-15.4)
[2017-12-22 10:44] LABS: Bacteria,Urine None Seen per hpf (None-Few); Squamous Epithelial Cell,Urine Many per lpf (None-Few); WBC,Urine 15-30 per hpf (0-3)
--- NOTE | 2017-12-22 12:13 | Electrocardiograph Report ---
[address] [place], [place] [address] Test Date: 2017-12-21 Pat Name: Jenna Gamble Department: 102 Room: 2N10 Gender: F Rv Repairer: : 1955 Requested By: Samson Sarkar Order Number: [id number] Reading MD: Zeny Shell Measurements Intervals [place] Rate: 142 P: 37 UT: 143 QRS: 16 QRSD: 85 T: 32 QT: 344 QTc: 426 Interpretive Statements SINUS TACHYCARDIA NONSPECIFIC ST & T-WAVE ABNORMALITY ABNORMAL RHYTHM ECG Electronically Signed On 12-22-2017 12:11:14 EDT by Zeny Shell
[2017-12-22] MEDS: Heparin 25,000 UNIT/500 ML D5W 25,000 UNIT/500 ML BAG IVC SCH (12:39)
[2017-12-22] MEDS: Ondansetron 4 MG/2 ML VIAL IVP PRN (14:11)
[2017-12-22] MEDS: Sennosides/Docusate Sodium TABLET PO SCH (20:23)
[2017-12-23] MEDS: *HR* FentaNYL (PF) 100 MCG/2 ML VIAL IVP PRN ×3 (00:12→19:57)
[2017-12-23] MEDS: Piperacillin/Tazobactam 3.375 GM in 0.9 % Sodium Chloride Mini Bag 100 ML IVPB SCH ×4 (00:12→23:43)
[2017-12-23 01:28] LABS: Hematocrit 22.8 % (35.3-44.9); Hemoglobin 7.4 g/dL (11.5-15.4); Mean Corpuscular HGB Conc 32.5 g/dL (31.6-35.5); Mean Corpuscular Hemoglobin 28.1 pg (28.0-33.3); Mean Corpuscular Volume 86.7 fL (83.0-100.0); Mean Platelet Volume 9.8 fL (9.4-12.4); Nucleated Red Blood Cells 2.2 /100 WBC (0); Platelet Count 322 K/mcL (140-400); Red Blood Count 2.63 M/mcL (3.82-4.97); Red Cell Distribution Width 19.8 % (11.5-14.5)
[2017-12-23 01:44] LABS: BUN/Creatinine Ratio 37 (6-26); Blood Urea Nitrogen 28 mg/dL (8-23); Calcium 8.9 mg/dL (8.6-10.3); Carbon Dioxide 25 mEq/L (23-29); Chloride 100 mEq/L (98-107); Glucose 155 mg/dL (70-105); Magnesium 1.9 mg/dL (1.6-2.6); Osmolality,Calculated 285 (280-300); Phosphorous 3.2 mg/dL (2.7-4.5); Potassium 3.7 mEq/L (3.5-5.1); Sodium 133 mEq/L (136-145); eGFR For African Americans > 60 (> 60); eGFR For Non-African Americans > 60 (> 60)
[2017-12-23 01:57] LABS: Lymphocytes # 2.4 K/mcL (0.6-4.6); Monocytes # 0.5 K/mcL (0.0-1.3); Neutrophils # 0.8 K/mcL (1.6-8.9)
[2017-12-23 01:58] LABS: Anisocytosis 1+ (Not Present); Microcytosis Present (Not Present); Platelet Estimate Normal (Normal)
[2017-12-23] MEDS: *HR* OxyCODONE/APAP 10/325 TABLET PO PRN ×4 (03:06→23:55)
[2017-12-23] MEDS: Sennosides/Docusate Sodium TABLET PO SCH ×2 (07:36→19:58)
[2017-12-23] MEDS: Ascorbic Acid 500 MG TABLET PO SCH (07:37)
[2017-12-23] MEDS: Heparin 25,000 UNIT/500 ML D5W 25,000 UNIT/500 ML BAG IVC SCH ×2 (07:44→23:56)
--- NOTE | 2017-12-23 08:38 | Electrocardiograph Report ---
[facility] Test Date: 2017-12-21 Pat Name: Jenna Gamble Department: 102 Room: 2N10 Gender: F Library Assistant: Amrit : 1955 Requested By: Cecilio Irvin Order Number: [id number] Reading MD: Cecilio Cosme Measurements Intervals [place] Rate: 165 P: VT: 0 QRS: 10 QRSD: 82 T: 61 QT: 255 QTc: 346 Interpretive Statements SUPRAVENTRICULAR TACHYCARDIA NONSPECIFIC T-WAVE ABNORMALITY ABNORMAL RHYTHM ECG Electronically Signed On 12-23-2017 8:36:54 EDT by Cecilio Cosme
[2017-12-23] MEDS ORDERED: Bisacodyl 10 MG RECTAL SUPPOSITORY RC ONE (10:02)
[2017-12-23] MEDS: *HR* Heparin 5,000 UNIT/ML VIAL IVP PRN (10:25)
--- NOTE | 2017-12-23 11:54 | Oncology Inp Consult Note ---
Date of Encounter: 12/23/17 Time of Encounter: 10:00 Assessment and Plan (1) Pulmonary embolism Status: Acute Assessment and plan: Incidentally found right lung pulmonary moles and. The small clot burden. I think she can be transitioned to heparin drip to Xarelto 20 mg once daily at discharge. I would hold on initiating Xarelto until after you have completed a therapeutic paracentesis given her abdominal findings today. Once her paracentesis is complete, Xarelto can be initiated and hopefully she can be discharged soon. Qualifiers: Pulmonary embolism type: other Chronicity: acute Acute cor pulmonale presence: without acute cor pulmonale Qualified Code(s): I26.99 - Other pulmonary embolism without acute cor pulmonale (2) Neutropenia Status: Acute Assessment and plan: She has neutropenia complicated by spontaneous bacterial peritonitis as well as an open Escherichia coli UTI. I agree with Valentine. She can likely be transitioned to Augmentin or Levaquin at time of discharge as this should over both organisms. It appears her counts are recovering. There is no indication for G-CSF as she is clinically stable. Qualifiers: Neutropenia type: unspecified Qualified Code(s): D70.9 - Neutropenia, unspecified (3) Constipation Status: Chronic Assessment and plan: As she is neutropenic, please hold on enema use. We should avoid rectal manipulation during neutropenia. Instead, utilize magnesium citrate. I placed an order for this. Qualifiers: Constipation type: drug induced constipation Qualified Code(s): K59.03 - Drug induced constipation (4) Ovarian cancer Status: Chronic Assessment and plan: She is clinically responding. Further management per her primary oncologist. I would consider adding Neulasta to her regimen to avoid neutropenia. Qualifiers: Laterality: unspecified laterality Qualified Code(s): C56.9 - Malignant neoplasm of unspecified ovary - Data of Consult Patient: known to practice within the last 3 years Requesting Physician: Samson Sarkar Primary Care Provider: Arcenio Andrade - Consult Narrative Reason for consult: New PE History of present illness: Ms. Gamble is a 62 year old female with stage IV ovarian cancer who is under the care of my partner, Dr. Graves, and recently completed cycle #2 of carboplatin and paclitaxel dose reduction who presented to the hospital with tachycardia with a heart rate in the 130s to 150s. Patient was generally weak and fatigued and she had palpitations over the past 3 days. She had a infectious symptoms of fever or chills. His believe she was septic and a subsequent been found to have an Escherichia coli UTI as well as spontaneous bacterial peritonitis with streptococcus. She had approximately 700 neutrophils and a positive culture for streptococcus. Albumin was not assessed. She is currently on Zosyn. During her evaluation, CT scan of the chest revealed an incidental pulmonary embolism in the distal aspect subsegmental pulmonary artery and the right lower lobe. There has been evidence of improvement of her cancer with resolution of a right pleural effusion as well as decrease and trace left pleural effusion. Her CA 125 has also decreased to 156. In speaking with the patient today, she has dyspnea on exertion which is stable and chronic. No increased shortness of breath. She does feel as though her abdomen is more distended than what has been in the past. Her appetite is down. She has not moved her bowels since Sunday. She is currently on MiraLAX twice daily, Senokot 2 tablets twice daily as well as docusate. She is neutropenic but her counts appear to be recovering. Past Med Surg Social Fam HX - Past Medical History Medical history: cancer, hypertension Psychiatric history: no psych history - Social History Smoking Status: Never smoker Smokeless Tobacco Status: No Alcohol use: none Drug use: none - Family History Sister Living Status: Still Living Hx Family Cancer: Yes (ovarian) Medications and Allergies Lidocaine/Prilocaine [Emla] 1 appl TP AD #30 gm 10/12/17 [Rx] Docusate Sodium [Colace] 100 mg PO BID #60 capsule 10/22/17 [Rx] Magic Mouthwash [Magic Mouthwash BLM] 10 ml PO QID PRN #240 ml 10/26/17 [Rx] Omeprazole [PriLOSEC] 20 mg PO DAILY #30 cap 10/26/17 [Rx] Ondansetron HCl [Zofran] 4 mg PO Q4H PRN #30 tablet 10/26/17 [Rx] Prochlorperazine Maleate [Compazine] 10 mg PO Q6H PRN #30 tablet 10/26/17 [Rx] Polyethylene Glycol 3350 [MiraLAX] 17 gm PO BID #1 tub 11/05/17 [Rx] Dexamethasone [Decadron] 20 mg PO AD 11/08/17 [History] Metoprolol [Lopressor] 1 tab PO BID 11/26/17 [History] Ascorbate Calcium [Vitamin C] 1 tab PO DAILY #30 tablet 12/03/17 [Rx] Ferrous Sulfate [Iron] 1 tab PO DAILY #30 tablet 12/03/17 [Rx] Oxycodone HCl/Acetaminophen [Percocet 10-325 mg Tablet] 10 mg PO Q6H PRN 15 Days #60 tablet 12/03/17 [Rx] 3 Allergy/AdvReac Type Severity Reaction Status Date / Time No Known Allergies Allergy Verified 12/21/17 09:26 All systems: reviewed and no additional remarkable complaints except as stated Constitutional: Present: anorexia, fatigue, lethargy Cardiovascular: Present: dyspnea on exertion, lightheadedness, palpitations, rapid heart rate Respiratory: Present: as per HPI Gastrointestinal: Present: as per HPI Musculoskeletal: Present: muscle weakness Neurological: Present: as per HPI Oncology - Exam - Constitutional Vitals: Temp Pulse Resp BP Pulse Ox 97.9 F 128 18 129/91 94 12/23/17 11:19 12/23/17 10:33 12/23/17 11:19 12/23/17 11:19 12/23/17 11:19 General appearance: average body habitus, mild distress - Head Head exam: Present: atraumatic, normal inspection, normocephalic - Eye Eye exam: Present: normal appearance, conjuntiva pink, sclera anicteric - ENT ENT exam: Present: mucous membranes moist, normal oropharynx - Neck Neck exam: Present: full ROM, normal inspection - Respiratory Respiratory exam: Present: CTAB - Cardiovascular Cardiovascular exam: Present: tachycardia - GI/Abdominal GI/Abdominal exam: Present: distended, firm, normal bowel sounds - Extremities Exam Extremities exam: Present: normal inspection - Neurological Exam Neurological exam: Present: alert, oriented X3, no focal deficits Oncology - Results Labs: Short CBC 12/23/17 Range/Units 00:46 WBC 4.2 L D (4.3-11.1) K/mcL Hgb 7.4 L (11.5-15.4) g/dL Hct 22.8 L (35.3-44.9) % Plt Count 322 (140-400) K/mcL Neutrophils # 0.8 L (1.6-8.9) K/mcL BMP 12/23/17 00:46 Sodium 133 L Potassium 3.7 Chloride 100 Carbon Dioxide 25 BUN 28 H Creatinine 0.75 Glucose 155 H Calcium 8.9 SUPINE VIEW(S) OF THE ABDOMEN 12/22/2017 10:35 am FINDINGS: The bowel gas pattern is within normal limits. No evidence of free intraperitoneal air or obstruction. No pathologic calcifications are identified. XR/XR KUB IMPRESSION: No acute intra-abdominal process. CTA OF THE CHEST 12/21/2017 12:04 pm FINDINGS: Pulmonary Arteries: Pulmonary arteries are adequately opacified for evaluation. Small filling defect within distal aspect of a segmental pulmonary artery to the right lower lobe compatible with pulmonary embolism (reference image 67 axial sequences). No findings for right heart strain. Main pulmonary artery is normal in caliber. Mediastinum: Heart is normal in size. No pericardial effusion. No acute findings are seen to the thoracic aorta. No evidence for thoracic aortic aneurysm. Mild atherosclerotic changes to the thoracic aorta. No mediastinal or hilar lymphadenopathy noted. Lungs/pleura: Interval resolution of trace right pleural effusion. Trace left pleural effusion appears similar to minimally improved from prior exam. There are some linear areas of likely scarring versus atelectasis to the lungs bilaterally, predominantly to the lung bases. No dense consolidations. No pneumothoraces. Evidence for prior granulomatous disease redemonstrated. No discrete pulmonary nodules or masses are seen. Upper Abdomen: Limited images through the upper abdomen redemonstrate ascites, not significantly changed. There is redemonstration of multiple low-attenuation foci to the liver felt to reflect a combination of neoplastic foci and liver cysts. These do not appear significantly changed. No adrenal mass lesions are seen. Soft Tissues/Bones: No acute or suspicious bony or soft tissue abnormalities. CT/CT angio chest IMPRESSION: Positive study for pulmonary embolism with tiny embolus within distal aspect of a segmental pulmonary artery to the right lower lobe. Low clot burden. No evidence for right heart strain. Interval resolution of trace right pleural effusion. Trace left pleural effusion appears similar to minimally improved from prior exam 11/08/2017. Linear areas of likely scarring versus atelectasis to the lungs bilaterally, predominantly to the lung bases. Grossly stable appearance to some low-attenuation foci to the partially imaged liver likely reflecting a combination of benign liver cysts as well as liver lesions. There is also persistent ascites, not appreciably changed from prior exam. Consult Discharge Plan - Plan Referrals: Aide Stephenson, DELMY [Primary Care Provider] -
--- NOTE | 2017-12-23 15:44 | Internal Med Progress Note ---
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 Stage IV currently undergoing treatment with [facility] (Dr. Graves) Oncology evaluation appreciated Qualifiers: Laterality: unspecified laterality Qualified Code(s): C56.9 - Malignant neoplasm of unspecified ovary (2) DVT prophylaxis Current Visit: Yes Status: Acute Assessment and plan: Continue heparin gtt (3) Severe sepsis Current Visit: Yes Status: Acute Assessment and plan: Likely secondary to UTI and SBP CT findings consistent with PE however not signs of infectious etiology present will repeat UA, urine culture blood culture prelim NGTD continue broad spectrum IV abx given immunocompromised status will de-escalate abx therapy as clinically improves and as per culture reports continue O2 supplementation as needed will continue to closely monitor (4) Pulmonary embolism Current Visit: Yes Status: Acute Assessment and plan: CTA chest findings consisted with RLL distal segmental PE continue heparin gtt oncology evaluatio appreciated will hold Heparin gtt six hours prior to paracentesis and start Xarelto after paracentesis O2 supplementation as needed Qualifiers: Pulmonary embolism type: other Chronicity: acute Acute cor pulmonale presence: without acute cor pulmonale Qualified Code(s): I26.99 - Other pulmonary embolism without acute cor pulmonale (5) HTN (hypertension) Current Visit: Yes Status: Acute Assessment and plan: BP within acceptable range continue home meds Qualifiers: Hypertension type: essential hypertension Qualified Code(s): I10 - Essential (primary) hypertension (6) Hyperglycemia Current Visit: Yes Status: Acute Assessment and plan: Likely secondary to oral steroid use with chemotherapy tx continue to monitor no insulin coverage for now; no h/o DM (7) Neutropenia Current Visit: Yes Status: Acute Assessment and plan: continue treatment with empiric IV abx oncology on board and evaluation appreciated will continue to closely monitor Qualifiers: Neutropenia type: unspecified Qualified Code(s): D70.9 - Neutropenia, unspecified (8) Constipation Current Visit: Yes Status: Chronic Assessment and plan: History of chronic constipation KUB done to r/o any acute etiology, negative for any intra-abd process Mg citrate added by oncology continue senna plus, miralax Qualifiers: Constipation type: drug induced constipation Qualified Code(s): K59.03 - Drug induced constipation (9) Sinus tachycardia Current Visit: Yes Status: Acute Assessment and plan: Hx of sinus tachycardia, worsened likely secondary to acute PE increased Metoprolol to 50mg PO BID continue heparin gtt for PE will continue tele monitoring pt denies any chest pain at this time - Time Spent With Patient Total time spent is greater than 50% in coordination of care (as documented) at patient's floor/unit and/or counseling patient: - Subjective Interval history: Patient seen and examined with family present at bedside. Pt reports of persistent nausea and abd discomfort due to constipation. Pt needs therapeutic paracentesis Oncology evaluation appreciated Will consult IR for paracentesis. Hold heparin six hours prior to paracentesis and will start Xarelto after the paracentesis - Constitutional Vitals: Temp Pulse Resp BP Pulse Ox 97.9 F 129 20 129/91 93 12/23/17 11:19 12/23/17 14:15 12/23/17 14:15 12/23/17 11:19 12/23/17 14:15 General appearance: Present: cooperative, A&O X 3 (frail/weak), no acute distress, answers questions appropriately - Head Head exam: Present: atraumatic, normocephalic - Eye Eye exam: Present: conjuntiva pink, sclera anicteric - Respiratory Respiratory exam: Absent: rales, respiratory distress, wheezes - Cardiovascular Cardiovascular exam: Present: RRR, +S1, +S2. Absent: diastolic murmur, gallop, rubs, systolic murmur - GI/Abdominal GI/Abdominal exam: Present: distended (ascites), normal bowel sounds, soft, no peritoneal signs - Extremities Exam Extremities exam: Present: warm, radial pulses palpable and symmetrical. Absent : calf tenderness - Neurological Exam Neurological exam: Present: oriented X3 Internal Medicine: Result - Labs CBC & Chem 7: 12/23/17 00:46 12/23/17 00:46 Labs: Short CBC 12/23/17 Range/Units 00:46 WBC 4.2 L D (4.3-11.1) K/mcL Hgb 7.4 L (11.5-15.4) g/dL Hct 22.8 L (35.3-44.9) % Plt Count 322 (140-400) K/mcL Neutrophils # 0.8 L (1.6-8.9) K/mcL BMP 12/23/17 00:46 Sodium 133 L Potassium 3.7 Chloride 100 Carbon Dioxide 25 BUN 28 H Creatinine 0.75 Glucose 155 H Calcium 8.9 - ABG Interpretation ABG results: PT/INR, D-dimer PT 14.3 Seconds (9.4-12.1) H 12/21/17 09:46 - VTE Documentation of Mechanical Device: Intermittent pneumatic compression device Consult Discharge Plan - Plan Referrals: Aide Stephenson, FORENSIC INVESTIGATOR [Primary Care Provider] -
[2017-12-23] MEDS: Ondansetron 4 MG/2 ML VIAL IVP PRN ×2 (15:47→23:41)
[2017-12-24 00:23] LABS: Mean Corpuscular HGB Conc 33.3 g/dL (31.6-35.5); Mean Corpuscular Hemoglobin 29.2 pg (28.0-33.3); Mean Corpuscular Volume 87.6 fL (83.0-100.0); Nucleated Red Blood Cells 2.4 /100 WBC (0); Platelet Count 358 K/mcL (140-400); Red Blood Count 2.74 M/mcL (3.82-4.97); Red Cell Distribution Width 20.2 % (11.5-14.5)
[2017-12-24 00:39] LABS: BUN/Creatinine Ratio 38 (6-26); Blood Urea Nitrogen 35 mg/dL (8-23); Carbon Dioxide 25 mEq/L (23-29); Chloride 98 mEq/L (98-107); Glucose 136 mg/dL (70-105); Osmolality,Calculated 286 (280-300); Phosphorous 3.5 mg/dL (2.7-4.5); Potassium 3.7 mEq/L (3.5-5.1); Sodium 133 mEq/L (136-145); eGFR For African Americans > 60 (> 60); eGFR For Non-African Americans > 60 (> 60)
[2017-12-24 04:15] LABS: Lymphocytes # 1.2 K/mcL (0.6-4.6); Monocytes # 0.5 K/mcL (0.0-1.3); Neutrophils # 10.1 K/mcL (1.6-8.9); Platelet Estimate Normal (Normal)
[2017-12-24] MEDS: *HR* OxyCODONE/APAP 10/325 TABLET PO PRN ×2 (06:05→21:02)
[2017-12-24] MEDS: *HR* FentaNYL (PF) 100 MCG/2 ML VIAL IVP PRN (08:13)
[2017-12-24] MEDS: Piperacillin/Tazobactam 3.375 GM in 0.9 % Sodium Chloride Mini Bag 100 ML IVPB SCH ×2 (08:13→16:08)
[2017-12-24] MEDS: Sennosides/Docusate Sodium TABLET PO SCH ×2 (08:14→21:02)
[2017-12-24] MEDS: Ascorbic Acid 500 MG TABLET PO SCH (08:14)
[2017-12-24] MEDS ORDERED: Aminoglycoside Consult 1 EACH MC ONE (08:36)
--- NOTE | 2017-12-24 12:06 | IR Procedure Note ---
Date of procedure: 12/24/17 Consent Obtained: Verbal consent Timeout: Correct patient and procedure verified, Correct site verified, Time out performed, Skin prep completed Indications: ascites Procedure Performed: paracentesis Was there an molding line assistant present: No Site/Technique: left abdomen Results/Findings: large ascites Estimated blood loss (cc): 0 Complications: None; Tolerated procedure well Post Procedure Treatment Plan: recovery Specimen: fluid
[2017-12-24] MEDS: Ondansetron 4 MG/2 ML VIAL IVP PRN ×2 (16:13→21:02)
[2017-12-24] MEDS ORDERED: *HR* HYDROmorphone (PF) 1 MG/ML SYRINGE IVP ONE (16:15)
--- NOTE | 2017-12-24 16:21 | Internal Med Progress Note ---
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 Stage IV currently undergoing treatment with [facility] (Dr. Graves) Oncology evaluation appreciated Qualifiers: Laterality: unspecified laterality Qualified Code(s): C56.9 - Malignant neoplasm of unspecified ovary (2) DVT prophylaxis Current Visit: Yes Status: Acute Assessment and plan: on heparin gtt will be started on Xarelto this evening with discontinuation of heparin gtt (3) Severe sepsis Current Visit: Yes Status: Acute Assessment and plan: Likely secondary to UTI and SBP CT findings consistent with PE however not signs of infectious etiology present f/u urine culture blood culture prelim NGTD periotoneal fluid cultures prelim positive for gram negative rods and strep will d/c IV vanco and continue zosyn continue O2 supplementation as needed will continue to closely monitor (4) Pulmonary embolism Current Visit: Yes Status: Acute Assessment and plan: CTA chest findings consisted with RLL distal segmental PE oncology evaluatio appreciated pt to be started on Xarelto this evening and will discontinue heparin gtt O2 supplementation as needed Qualifiers: Pulmonary embolism type: other Chronicity: acute Acute cor pulmonale presence: without acute cor pulmonale Qualified Code(s): I26.99 - Other pulmonary embolism without acute cor pulmonale (5) HTN (hypertension) Current Visit: Yes Status: Acute Assessment and plan: BP within acceptable range continue home meds Qualifiers: Hypertension type: essential hypertension Qualified Code(s): I10 - Essential (primary) hypertension (6) Hyperglycemia Current Visit: Yes Status: Acute Assessment and plan: Likely secondary to oral steroid use with chemotherapy tx continue to monitor (7) Neutropenia Current Visit: Yes Status: Resolved Assessment and plan: continue treatment with IV abx oncology on board and evaluation appreciated will continue to closely monitor Qualifiers: Neutropenia type: unspecified Qualified Code(s): D70.9 - Neutropenia, unspecified (8) Constipation Current Visit: Yes Status: Chronic Assessment and plan: History of chronic constipation KUB done to r/o any acute etiology, negative for any intra-abd process will provide with enema support Qualifiers: Constipation type: drug induced constipation Qualified Code(s): K59.03 - Drug induced constipation (9) Sinus tachycardia Current Visit: Yes Status: Acute Assessment and plan: Hx of sinus tachycardia, worsened likely secondary to acute PE Metoprolol 50mg PO BID will continue tele monitoring pt denies any chest pain at this time - Time Spent With Patient Total time spent is greater than 50% in coordination of care (as documented) at patient's floor/unit and/or counseling patient: - Subjective Interval history: Patient seen and examined with family present at bedside. Pt sitting in bed and appears to be feeling better compared to previous day. s/p therapeutic paracentesis with removal of 4L of ascites fluid done by IR (12/24) pt still not able to have a bowel movement despite the mg citrate and laxative support neutropenia resolved, will give patient enema D/c heparin gtt and start pt on Xarelto PT/OT evaluation requested. - Constitutional Vitals: Temp Pulse Resp BP Pulse Ox 98.2 F 139 18 93/65 93 12/24/17 16:08 12/24/17 16:08 12/24/17 16:08 12/24/17 16:08 12/24/17 16:08 General appearance: Present: cooperative, A&O X 3 (frail/weak), no acute distress, answers questions appropriately - Head Head exam: Present: atraumatic, normocephalic - Eye Eye exam: Present: conjuntiva pink, sclera anicteric - Respiratory Respiratory exam: Present: CTAB. Absent: respiratory distress, wheezes - Cardiovascular Cardiovascular exam: Present: +S1, +S2, tachycardia (sinus tachycardia ) - GI/Abdominal GI/Abdominal exam: Present: distended (ascites), normal bowel sounds, soft, no peritoneal signs - Extremities Exam Extremities exam: Present: warm, radial pulses palpable and symmetrical. Absent : calf tenderness, tenderness - Neurological Exam Neurological exam: Present: oriented X3 Internal Medicine: Result - Labs CBC & Chem 7: 12/24/17 00:06 12/24/17 00:06 Labs: Short CBC 12/24/17 Range/Units 00:06 WBC 12.3 H D (4.3-11.1) K/mcL Hgb 8.0 L (11.5-15.4) g/dL Hct 24.0 L (35.3-44.9) % Plt Count 358 (140-400) K/mcL Neutrophils # 10.1 H (1.6-8.9) K/mcL BMP 12/24/17 00:06 Sodium 133 L Potassium 3.7 Chloride 98 Carbon Dioxide 25 BUN 35 H Creatinine 0.92 Glucose 136 H Calcium 9.0 - ABG Interpretation ABG results: PT/INR, D-dimer PT 14.3 Seconds (9.4-12.1) H 12/21/17 09:46 - Impressions Impressions Paracentesis Ultrasound 12/24/17 08:04 IMPRESSION: Successful ultrasound guided paracentesis. D/ / Beba Fernandes MD / Beba Fernandes MD Interpreting Provider: Beba Fernandes MD - VTE Documentation of Mechanical Device: Intermittent pneumatic compression device Consult Discharge Plan - Plan Referrals: Aide Stephenson [employer] LEVEL PROJECT MANAGER [Primary Care Provider] - 01/02/18 10:45 am
[2017-12-24] MEDS: *HR* Rivaroxaban 15 MG TABLET PO SCH (17:28)
[2017-12-24] MEDS ORDERED: *HR* OxyCODONE Immed Rel 5 MG TABLET PO PRN (19:55)
[2017-12-24] MEDS: *HR* HYDROmorphone (PF) 1 MG/ML SYRINGE IVP PRN (21:27)
[2017-12-25] MEDS: Piperacillin/Tazobactam 3.375 GM in 0.9 % Sodium Chloride Mini Bag 100 ML IVPB SCH ×3 (01:36→17:27)
[2017-12-25] MEDS: *HR* HYDROmorphone (PF) 1 MG/ML SYRINGE IVP PRN ×3 (01:36→09:51)
[2017-12-25 05:00] LABS: Hematocrit 23.3 % (35.3-44.9); Hemoglobin 7.7 g/dL (11.5-15.4); Mean Corpuscular Hemoglobin 28.8 pg (28.0-33.3); Mean Corpuscular Volume 87.3 fL (83.0-100.0); Mean Platelet Volume 10.3 fL (9.4-12.4); Nucleated Red Blood Cells 1.7 /100 WBC (0); Platelet Count 291 K/mcL (140-400); Red Blood Count 2.67 M/mcL (3.82-4.97); Red Cell Distribution Width 20.9 % (11.5-14.5)
[2017-12-25 05:15] LABS: BUN/Creatinine Ratio 42 (6-26); Blood Urea Nitrogen 34 mg/dL (8-23); Calcium 8.5 mg/dL (8.6-10.3); Carbon Dioxide 24 mEq/L (23-29); Chloride 101 mEq/L (98-107); Glucose 134 mg/dL (70-105); Magnesium 1.7 mg/dL (1.6-2.6); Osmolality,Calculated 288 (280-300); Phosphorous 2.6 mg/dL (2.7-4.5); Potassium 3.4 mEq/L (3.5-5.1); Sodium 134 mEq/L (136-145); eGFR For African Americans > 60 (> 60); eGFR For Non-African Americans > 60 (> 60)
[2017-12-25] MEDS: *HR* Rivaroxaban 15 MG TABLET PO SCH ×2 (05:16→17:27)
[2017-12-25 05:50] LABS: Lymphocytes # 3.1 K/mcL (0.6-4.6); Monocytes # 2.8 K/mcL (0.0-1.3); Neutrophils # 10.1 K/mcL (1.6-8.9)
[2017-12-25 05:51] LABS: Anisocytosis 1+ (Not Present); Basophilic Stippling 1+ (Not Present); Platelet Estimate Normal (Normal); Polychromasia 1+ (Not Present)
[2017-12-25] MEDS: Ascorbic Acid 500 MG TABLET PO SCH (08:18)
[2017-12-25] MEDS ORDERED: Potassium Phosphate 44 MEQ in 0.9 % Sodium Chloride 250 ML IVPB ONE (08:42)
[2017-12-25] MEDS: Sennosides/Docusate Sodium TABLET PO SCH (09:57)
[2017-12-25] MEDS: *HR* OxyCODONE/APAP 10/325 TABLET PO PRN ×2 (12:24→18:39)
--- NOTE | 2017-12-25 15:03 | Oncology Inp Progress Note ---
<Valentin Castorena S - Last Filed: 12/25/17 18:09> Date of Encounter: 12/25/17 (1) Pulmonary embolism Status: Acute Qualifiers: Pulmonary embolism type: other Chronicity: acute Acute cor pulmonale presence: without acute cor pulmonale Qualified Code(s): I26.99 - Other pulmonary embolism without acute cor pulmonale (2) Neutropenia Status: Resolved Qualifiers: Neutropenia type: unspecified Qualified Code(s): D70.9 - Neutropenia, unspecified (3) Constipation Status: Chronic Qualifiers: Constipation type: drug induced constipation Qualified Code(s): K59.03 - Drug induced constipation (4) Ovarian cancer Status: Chronic Qualifiers: Laterality: unspecified laterality Qualified Code(s): C56.9 - Malignant neoplasm of unspecified ovary - Constitutional Vitals: Vital Signs Temp Pulse Resp BP Pulse Ox 12/25/17 15:00 98.0 F 121 15 116/71 100 12/25/17 13:52 98.1 F 117 16 119/76 100 12/25/17 10:57 97.4 F L 120 22 118/74 98 12/25/17 10:35 97.8 F 118 16 116/78 94 12/25/17 10:20 118 16 116/78 94 12/25/17 07:26 98.3 F 123 23 131/84 97 12/25/17 04:15 98.2 F 121 16 112/71 94 12/25/17 01:07 97.5 F L 104 16 104/72 95 12/24/17 20:03 98.1 F 124 18 117/74 95 Intake and Output 12/25/17 12/25/17 12/26/17 08:59 16:59 00:59 Intake Total 969 / 969 Output Total 400 / 400 200 / 200 Balance -400 / -400 769 / 769 Intake: IV Fluids 489 / 489 Zosyn 3.375 GM In 0.9 % Sodium 100 / 100 Chloride (Mini-Bag +) 100 ML @ 25 mls/hr IVPB Q8HR [facility] Rx#: [id number] Potassium Phosphate 44 MEQ In 0 139 / 139 .9 % Sodium Chloride 250 ML @ 40 mls/hr IVPB ONCE ONE Rx#: [id number] Vancocin 1,000 MG In 0.9 % 250 / 250 Sodium Chloride 250 ML @ 167 mls/hr IVPB Q12H [facility] Rx#: [id number] Free Water 480 / 480 Output: Urine 400 / 400 Urine/Stool Mix 200 / 200 Other: Meal Breakfast Percent of Meal Consumed 25% Stool Size Large Stool Consistency liquid Stool Color Black Weight 73.4 kg Blood Glucose* 211 Patient Weight 12/26/17 00:59 Weight 73.4 kg Oncology: Obj Data - Labs CBC & Chem 7: 12/25/17 04:30 12/25/17 04:30 Labs: Laboratory Results - last 24 hr 12/24/17 12/24/17 12/25/17 16:07 19:58 04:30 WBC 17.4 H RBC 2.67 L Hgb 7.7 L Hct 23.3 L MCV 87.3 MCH 28.8 MCHC 33.0 RDW 20.9 H Plt Count 291 MPV 10.3 Seg Neutrophils % 58.0 Lymphocytes % 18.0 Monocytes % 16.0 Metamyelocytes % 6.0 H Myelocytes % 2.0 H Neutrophils # 10.1 H Lymphocytes # 3.1 Monocytes # 2.8 H Nucleated RBCs/100 WBC 1.7 H Platelet Estimate Normal Polychromasia 1+ A Basophilic Stippling 1+ A Anisocytosis 1+ A Sodium Potassium Chloride Carbon Dioxide BUN Creatinine Est GFR ( Amer) Est GFR (Non-Af Amer) BUN/Creatinine Ratio Glucose POC Glucose 124 H 149 H Calculated Osmolality Calcium Phosphorus Magnesium 12/25/17 04:30 WBC RBC Hgb Hct MCV MCH MCHC RDW Plt Count MPV Seg Neutrophils % Lymphocytes % Monocytes % Metamyelocytes % Myelocytes % Neutrophils # Lymphocytes # Monocytes # Nucleated RBCs/100 WBC Platelet Estimate Polychromasia Basophilic Stippling Anisocytosis Sodium 134 L Potassium 3.4 L Chloride 101 Carbon Dioxide 24 BUN 34 H Creatinine 0.81 Est GFR ( Amer) > 60 Est GFR (Non-Af Amer) > 60 BUN/Creatinine Ratio 42 H Glucose 134 H POC Glucose Calculated Osmolality 288 Calcium 8.5 L Phosphorus 2.6 L Magnesium 1.7 - ABG Interpretation ABG results: PT/INR, D-dimer PT 14.3 Seconds (9.4-12.1) H 12/21/17 09:46 Consult Discharge Plan - Plan Referrals: Aide Stephenson CNP [Primary Care Provider] - 01/02/18 10:45 am - Attending Attestation I examined this patient and my medical decision-making was reviewed with the Advanced Practice Nurse. I agree with the documented findings, disposition and treatment plan as described except to the extent set forth below. I met with Ms. Gamble as well as her family again today. They are requesting transfer to the [facility] I asked to clarify what her medical needs would be for transfer. They are content with her oncologic care, and the care they are receiving under Dr. Graves. She is clinically improving from her spontaneous bacterial peritonitis from Streptococcus as well as her Escherichia coli UTI. In addition , she is having a robust radiographic, biochemical and clinical response to ovarian cancer. Her therapeutic paracentesis was well tolerated with improvement in pain. Her imaging and labs were again reviewed with them today. The family states that "want to do something different" but will not elaborate further. I offered the opportunity to meet with patient relations to see there something we could help from a nursing or care perspective but they declined. I did inform them that they should not expect to receive further therapy for her cancer as she is actively infected. Surgery will not be pursued during this hospital stay as she is debilitated and has active infection. It would be best for her to meet with the gynecologic oncology team once she has recovered from her acute event as an outpatient. They voiced understanding but still wants to pursue transfer I offered my assistance moving forward I asked him to call us with any concerns or questions. I spent 25 minutes in direct patient care today. <Carolyn Gómez - Last Filed: 12/28/17 10:14> Date of Encounter: 12/25/17 Time of Encounter: 15:03 (1) Pulmonary embolism Status: Acute Assessment and plan: Heparin gtt discontinued, continue xarelto. Further management per primary treating oncologist. Symptomatically improving. Vitals have stabilized. Qualifiers: Pulmonary embolism type: other Chronicity: acute Acute cor pulmonale presence: without acute cor pulmonale Qualified Code(s): I26.99 - Other pulmonary embolism without acute cor pulmonale (2) Constipation Status: Chronic Assessment and plan: Resolved. Qualifiers: Constipation type: drug induced constipation Qualified Code(s): K59.03 - Drug induced constipation (3) Ovarian cancer Status: Chronic Assessment and plan: She has biochemical, radiographic and clinical response S/P 2 cycles. Discussed this with family at bedside today along with Dr. Castorena who had a very detailed discussion with family later in day, his attestation is detailed below. Patient and patients family are now requesting transfer to [facility]. Reasoning behind this is unclear when speaking with family. They mentioned wanting a "second opinion" which is perfectly reasonable, however, would prefer to assist patient with referral to [facility] for second opinion with Piercing Machine Operator/Onc versus transfer today to their medical floor. An outpatient referral once her infection improves for second opinion may better suit their needs, however, patient and patients family decline. Multiple concerns were addressed at today's visit, all questions were answered to the best of my ability. Please refer to Dr. Castorena's attestation below for additional details. Otherwise, patient was given an appointment card with their already scheduled appointment with Dr. Graves for this upcoming Sunday. Patient and patients family state that they wish to keep this appointment. Treatment is also scheduled for this day, clearance TBD by treating oncologist, Dr. Graves. Qualifiers: Laterality: unspecified laterality Qualified Code(s): C56.9 - Malignant neoplasm of unspecified ovary (4) Neutropenia Status: Resolved Assessment and plan: Resolved. Now seeing leukocytosis in the presence of active infection with SBP and UTI. Qualifiers: Neutropenia type: unspecified Qualified Code(s): D70.9 - Neutropenia, unspecified Oncology: Subj Interval history: Ms. Gamble is resting in bed comfortably with multiple family members at bedside. Her pain is controlled and she reports she is feeling better day by day. She has working with physical therapy today and ambulated to the bathroom and chair. Multiple concerns and questions were addressed at today's visit. - Constitutional Vitals: Vital Signs Temp Pulse Resp BP Pulse Ox 12/25/17 13:52 98.1 F 117 16 119/76 100 12/25/17 10:57 97.4 F L 120 22 118/74 98 12/25/17 10:35 97.8 F 118 16 116/78 94 12/25/17 10:20 118 16 116/78 94 12/25/17 07:26 98.3 F 123 23 131/84 97 12/25/17 04:15 98.2 F 121 16 112/71 94 12/25/17 01:07 97.5 F L 104 16 104/72 95 12/24/17 20:03 98.1 F 124 18 117/74 95 12/24/17 16:08 98.2 F 139 18 93/65 93 12/24/17 15:20 119 Intake and Output 12/24/17 12/25/17 12/25/17 23:59 07:59 15:59 Intake Total 100 / 100 969 / 969 Output Total 200 / 200 400 / 400 200 / 200 Balance -100 / -100 -400 / -400 769 / 769 Intake: IV Fluids 100 / 100 489 / 489 Zosyn 3.375 GM In 0.9 % Sodium 100 / 100 100 / 100 Chloride (Mini-Bag +) 100 ML @ 25 mls/hr IVPB Q8HR [facility] Rx#: [id number] Potassium Phosphate 44 MEQ In 0 139 / 139 .9 % Sodium Chloride 250 ML @ 40 mls/hr IVPB ONCE ONE Rx#: [id number] Vancocin 1,000 MG In 0.9 % 250 / 250 Sodium Chloride 250 ML @ 167 mls/hr IVPB Q12H [facility] Rx#: [id number] Free Water 480 / 480 Output: Urine 200 / 200 400 / 400 Urine/Stool Mix 200 / 200 Other: Meal Dinner Breakfast Percent of Meal Consumed 0% 25% Weight 73.4 kg Blood Glucose* 149 Patient Weight 12/25/17 23:59 Weight 73.4 kg General appearance: cooperative, no acute distress, thin, no febrile - Head Head exam: Present: atraumatic - ENT ENT exam: Present: mucous membranes moist - Respiratory Respiratory exam: Present: CTAB. Absent: respiratory distress - Cardiovascular Cardiovascular exam: Present: RRR, +S1, +S2 - GI/Abdominal GI/Abdominal exam: Present: normal bowel sounds, soft. Absent: tenderness - Extremities Exam Extremities exam: Present: normal inspection. Absent: calf tenderness - Neurological Exam Neurological exam: Present: alert, oriented X3, no focal deficits, strengths equal and symetr throughout - Psychiatric Psychiatric exam: Present: normal affect, normal mood Additional comments: appears frustrated at times during conversation today - Skin Skin exam: Present: dry, intact, normal color, warm Oncology: Obj Data - Labs CBC & Chem 7: 12/25/17 04:30 12/25/17 04:30 - ABG Interpretation ABG results: PT/INR, D-dimer PT 14.3 Seconds (9.4-12.1) H 12/21/17 09:46
[2017-12-25 15:55] VITALS: BP 116/71
--- NOTE | 2017-12-25 17:05 | Transfer Summary ---
Date of Encounter: 12/25/17 Time of Encounter: 10:10 Transfer Discharge Sum: Diag - Discharge Diagnosis (1) Ovarian cancer Status: Chronic (2) DVT prophylaxis Status: Acute (3) Severe sepsis Status: Acute (4) Pulmonary embolism Status: Acute (5) HTN (hypertension) Status: Acute (6) Hyperglycemia Status: Acute (7) Neutropenia Status: Resolved (8) Constipation Status: Chronic (9) Sinus tachycardia Status: Acute Transfer Discharge Sum: Med - Medications Active and Home Medications: Home Medications Lidocaine/Prilocaine [Emla] 1 appl TP AD #30 gm 10/12/17 [Rx Confirmed 12/21/17] Docusate Sodium [Colace] 100 mg PO BID #60 capsule 10/22/17 [Rx Confirmed ] Magic Mouthwash [Magic Mouthwash BLM] 10 ml PO QID PRN #240 ml 10/26/17 [Rx Confirmed 12/21/17] Omeprazole [PriLOSEC] 20 mg PO DAILY #30 cap 10/26/17 [Rx Confirmed 12/21/17] Ondansetron HCl [Zofran] 4 mg PO Q4H PRN #30 tablet 10/26/17 [Rx Confirmed 12/21] Prochlorperazine Maleate [Compazine] 10 mg PO Q6H PRN #30 tablet 10/26/17 [Rx Confirmed 12/21/17] Polyethylene Glycol 3350 [MiraLAX] 17 gm PO BID #1 tub 11/05/17 [Rx Confirmed ] Dexamethasone [Decadron] 20 mg PO AD 11/08/17 [History Confirmed 12/21/17] Metoprolol [Lopressor] 1 tab PO BID 11/26/17 [History Confirmed 12/21/17] Ascorbate Calcium [Vitamin C] 1 tab PO DAILY #30 tablet 12/03/17 [Rx Confirmed 12/21/17] Ferrous Sulfate [Iron] 1 tab PO DAILY #30 tablet 12/03/17 [Rx Confirmed 12/21/17 ] Oxycodone HCl/Acetaminophen [Percocet 10-325 mg Tablet] 10 mg PO Q6H PRN 15 Days #60 tablet 12/03/17 [Rx Confirmed 12/21/17] Active Medications Acetaminophen (Tylenol) 650 mg PO Q6HR PRN PRN Reason: Fever Stop: 06/22/18 15:42 Ascorbic Acid (Vitamin C) 1 mg PO DAILY [facility] Stop: 06/23/18 09:01 Last Admin: 12/25/17 08:18 Dose: 1 mg Ferrous Sulfate (Ferrous Sulfate) 325 mg PO DAILY [facility] Stop: 06/23/18 09:01 Last Admin: 12/25/17 08:18 Dose: 325 mg Hydromorphone HCl (Dilaudid) 0.5 mg IVP Q4HR PRN; Protocol PRN Reason: Pain Stop: 06/25/18 19:56 Last Admin: 12/25/17 09:51 Dose: 0.5 mg Piperacillin Sod/Tazobactam (Sod 3.375 gm/ Sodium Chloride) 100 mls @ 25 mls/ hr IVPB Q8HR [facility] Stop: 06/23/18 00:01 Last Infusion: 12/25/17 14:36 Dose: Infused Vancomycin HCl 1,000 mg/ (Sodium Chloride) 250 mls @ 167 mls/hr IVPB Q12H [facility] PRN Reason: Protocol Stop: 06/26/18 11:01 Last Infusion: 12/25/17 14:37 Dose: Infused Levalbuterol HCl (Xopenex) 0.63 mg IH [id number] PRN PRN Reason: Wheezing Stop: 06/22/18 16:01 Metoprolol Tartrate (Lopressor) 50 mg PO BID [facility] Stop: 06/24/18 08:16 Last Admin: 12/25/17 08:18 Dose: 50 mg Multi-Ingredient Mouthwash/Gargle (Magic Mouthwash) 10 ml PO QID PRN PRN Reason: Mouth sores Naloxone HCl (Narcan) 0.4 mg IVP Q2MIN PRN PRN Reason: SEE COMMENTS Stop: 06/22/18 14:58 Omeprazole (Prilosec) 20 mg PO 0630 [facility] PRN Reason: Protocol Stop: 06/23/18 06:31 Last Admin: 12/25/17 05:16 Dose: 20 mg Ondansetron HCl (Zofran) 4 mg IVP Q6HR PRN; Protocol PRN Reason: Nausea Stop: 06/22/18 14:44 Last Admin: 12/24/17 21:02 Dose: 4 mg Oxycodone/Acetaminophen (Percocet 10/325) 1 each PO Q6H PRN PRN Reason: Moderate Pain Stop: 06/22/18 14:49 Last Admin: 12/25/17 12:24 Dose: 1 each Polyethylene Glycol (Miralax) 17 gm PO BID [facility] Stop: 06/22/18 21:01 Last Admin: 12/25/17 09:57 Dose: Not Given Prochlorperazine Maleate (Compazine) 10 mg PO Q6HR PRN PRN Reason: Nausea And Vomiting Stop: 06/24/18 18:08 Last Admin: 12/24/17 06:45 Dose: 10 mg Rivaroxaban (Xarelto) 15 mg PO Q12H [facility] Stop: 01/14/18 06:01 Last Admin: 12/25/17 05:16 Dose: 15 mg Senna/Docusate Sodium (Senna Plus) 2 each PO BID [facility] PRN Reason: Protocol Stop: 06/23/18 21:01 Last Admin: 12/25/17 09:57 Dose: Not Given Throat Lozenges (Cepacol Sore Throat Lozenge) 1 each MM Q2H PRN PRN Reason: Sore Throat Stop: 06/25/18 13:58 Transfer Discharge Sum: Data Procedures and tests throughout hospitalization: Pending Orders 12/21/17 14:57 Naloxone [Narcan] 0.4 mg IVP Q2MIN PRN Resuscitation Status: Active [RES] Routine 12/21/17 14:58 Admit as Inpatient Routine Cardiac Monitoring Med/Surg [RC] .CONT Peripheral IV [RC] Up ad yari [RC] .PRN 12/21/17 14:59 Continuous pulse oximetry [RC] CONT Measure intake and output [RC] QSHIFT Measure weight [RC] DAILY Oxygen via nasal cannula Nasal Cannula 2 lpm 12/21/17 15:40 Levalbuterol Neb [Xopenex] 0.63 mg IH [id number] PRN 12/21/17 15:41 Acetaminophen [Tylenol] 650 mg PO Q6HR PRN 12/21/17 18:09 OxyCODONE/APAP 10/325 [Percocet 10/325] 1 each PO Q6H PRN 12/21/17 18:47 Consult to Nutrition [CONS] Routine 12/22/17 00:00 Piperacillin/Tazobactam [Zosyn] 3.375 gm 0.9 % Sodium Chloride Mini Bag [0.9 % Sodium Chloride (Mini-Bag +)] 100 ml IVPB Q8HR 12/22/17 21:00 Sennosides/Docusate Sodium [Senna Plus] 2 each PO BID 12/23/17 08:08 Occult Blood,Stool [BF] Stat 12/23/17 08:15 Metoprolol [Lopressor] 50 mg PO BID 12/23/17 09:58 Consult to Occupational Therapy [CONS] Routine Consult to Physical Therapy [CONS] Routine Consult to Efficiency Engineer [CONS] Routine 12/23/17 18:07 Prochlorperazine Maleate [Compazine] 10 mg PO Q6HR PRN 12/24/17 13:57 Benzocaine/Menthol Leny [Cepacol Sore Throat Lozenge] 1 each MM Q2H PRN 12/24/17 17:38 Enema administration [RC] NOW 12/24/17 18:00 Rivaroxaban [Xarelto] 15 mg PO Q12H 12/24/17 21:30 HYDROmorphone (PF) [Dilaudid] 0.5 mg IVP Q4HR PRN 12/24/17 Lunch Dietary Supplement Regular Diet 12/25/17 11:00 Vancomycin [Vancocin] 1,000 mg 0.9 % Sodium Chloride 250 ml IVPB Q12H 12/25/17 16:52 Occult blood, stool, guiac poc [RC] .ONCE 12/26/17 04:00 Basic Metabolic Panel AM 0400 Complete Blood Count [HEME] AM 0400 Magnesium AM 0400 Phosphorous AM 0400 - Impressions ITS Impressions KUB X-Ray 12/22/17 09:58 IMPRESSION: No acute intra-abdominal process. D/ / Lazaro Davis MD / Lazaro Davis MD Interpreting Provider: Lazaro Davis MD Paracentesis Ultrasound 12/24/17 08:04 IMPRESSION: Successful ultrasound guided paracentesis. D/ / Beba Fernandes MD / Beba Fernandes MD Interpreting Provider: Beba Fernandes MD Transfer Discharge Sum: Prov Date of admission: 12/21/17 14:56 Primary care physician: Arcenio Andrade Consults: 12/21/17 18:47 Consult to Nutrition [CONS] Routine Comment: wt loss with CA Consulting Provider: NUTRITION Reason for Dietary Consult: PO Supplementation 12/23/17 09:58 Consult to Occupational Therapy [CONS] Routine Comment: Evaluate, develop and implement POC Reason for Consult: Discharge planning Does patient have active BEDREST order?: No Is patient medically & hemodynamically stable?: Yes Consult to Physical Therapy [CONS] Routine Comment: Evaluate, develop and implement POC Reason for Consult: Discharge planning Does patient have active BEDREST order?: No Is patient medically & hemodynamically stable?: Yes Consult to Efficiency Engineer [CONS] Routine Reason for SW Consult: Oncology patient requesting home health if possible. Discharging clinician: Janette Gong Anticipated date of transfer: 12/25/17 Receiving physician/facility: [facility] under the care of Dr. Augustin Transfer Discharge Sum: A/P - Plan Functional capacity at transfer: uses cane/walker Overall status at transfer: patient is back to baseline Disposition: Transfer Other Transfer Discharge Sum: Hosp Hospital course: Ms. Gamble is a 62 year old female with HTN, stage IV ovarian cancer with metastatic disease who is admitted for sepsis secondary to SBP and newly diagnosed PE. Pt is on broad spectrum IV abx and was started on heparin gtt upon arrival. Pt was evaluated by oncology and was started on Xarelto with discontinuation of heparin. She has history of severe constipation and required extensive laxative support but was able to have a bowel movement this morning. She underwent diagnostic and therapeutic paracentesis. Pt underwent chemotherapy a week prior to her hospitalization and continues to remain weak. she also has a history of sinus tachycardia. Pt was noted to have seen an oncologist at [facility] but no further follow up was arranged. Pt is noted to have worsening leukocytosis but clinically is improving (afebrile ), however given her frail status, family and patient wished transfer to [facility]. Patient and family are informed that the transfer can be made but it will be an elective transfer as per their wishes and her insurance may not cover the cost of the transfer transportation. Family and patient agree to pay the transfer fees as needed. [facility] has accepted the patient under the service of Dr. Augustin. Transfer pending bed availability. Pt to continue IV abx while inpatient Xarelto for PE reported of having a dark Bowel movement, will send occult stool will continue to closely monitor labs and vitals. The above plan and care was discussed with the patient and family. All questions were answered. - Time Spent with Patient Total time spent providing and/or coordinating transfer services: Greater than 30 minutes Transfer Discharge Sum: Exam - Constitutional Vitals: Vital Signs Temp Pulse Resp BP Pulse Ox 12/25/17 15:00 98.0 F 121 15 116/71 100 12/25/17 13:52 98.1 F 117 16 119/76 100 12/25/17 10:57 97.4 F L 120 22 118/74 98 12/25/17 10:35 97.8 F 118 16 116/78 94 12/25/17 10:20 118 16 116/78 94 12/25/17 07:26 98.3 F 123 23 131/84 97 12/25/17 04:15 98.2 F 121 16 112/71 94 12/25/17 01:07 97.5 F L 104 16 104/72 95 12/24/17 20:03 98.1 F 124 18 117/74 95 Intake and Output 12/25/17 12/25/17 12/25/17 07:59 15:59 23:59 Intake Total 969 / 969 Output Total 400 / 400 200 / 200 Balance -400 / -400 769 / 769 Intake: IV Fluids 489 / 489 Zosyn 3.375 GM In 0.9 % Sodium 100 / 100 Chloride (Mini-Bag +) 100 ML @ 25 mls/hr IVPB Q8HR [facility] Rx#: [id number] Potassium Phosphate 44 MEQ In 0 139 / 139 .9 % Sodium Chloride 250 ML @ 40 mls/hr IVPB ONCE ONE Rx#: [id number] Vancocin 1,000 MG In 0.9 % 250 / 250 Sodium Chloride 250 ML @ 167 mls/hr IVPB Q12H [facility] Rx#: [id number] Free Water 480 / 480 Output: Urine 400 / 400 Urine/Stool Mix 200 / 200 Other: Meal Breakfast Percent of Meal Consumed 25% Stool Size Large Stool Consistency liquid Stool Color Black Weight 73.4 kg Blood Glucose* 211 Patient Weight 12/25/17 23:59 Weight 73.4 kg General appearance: thin - Head Head exam: Present: atraumatic, normocephalic - Eye Eye exam: Present: conjuntiva pink, sclera anicteric - Respiratory Respiratory exam: Present: CTAB. Absent: respiratory distress, wheezes - Cardiovascular Cardiovascular exam: Present: +S1, +S2, tachycardia (sinus tachycardia) - GI/Abdominal GI/Abdominal exam: Present: normal bowel sounds (ascites), soft. Absent: tenderness - Extremities Exam Extremities exam: Absent: calf tenderness, tenderness - Neurological Exam Neurological exam: Present: oriented X3 - VTE Documentation of Mechanical Device: Intermittent pneumatic compression device
== END 2017-12-25 18:55 | disposition other institution (70) | DRG 871 ==
LOC: EMEROO 09:24 → 2NNU 14:56
PROVIDERS: ADMIT Internal Medicine; ATTEND Internal Medicine